=== PATIENT | female | born 1985 | race Two or more races ===

== ENCOUNTER 2021-01-30 12:27 | Emergency (ER) | payer OTHER ==
[~2021-01-30] VITALS: Ht 154.9 cm; Wt 81.6 kg
[2021-01-30 14:29] VITALS: BP 121/73
== END 2021-01-30 14:38 | disposition home or self-care (01) ==
LOC: ER 12:27
DX: G45.9 Transient cerebral ischemic attack, unspecified (principal)
CPT/HCPCS: 70450

== ENCOUNTER 2021-02-24 06:11 | Emergency (ER) | payer OTHER ==
[~2021-02-24] VITALS: Ht 154.9 cm; Wt 82.1 kg
[2021-02-24 07:25] LABS: Basophils # (auto) 0 10 ^3/uL (0-0.2); Basophils % (auto) 0.5 % (0.0-2.0); Eosinophils # (auto) 0.1 10 ^3/uL (0-0.8); Eosinophils % (auto) 1.2 % (0.0-7.0); Hematocrit 40.1 % (36.0-46.0); Hemoglobin 13.8 g/dL (12.2-16.2); Lymphocytes # (auto) 1.7 10 ^3/uL (0.4-5.4); Lymphocytes % (auto) 25.9 % (10.0-50.0); Mean Corpuscular Hemoglobin 30.1 pg (28.0-32.0); Mean Corpuscular Hgb Conc. 34.5 g/dL (32.0-36.0); Mean Corpuscular Volume 87.2 fL (80.0-100.0); Monocytes # (auto) 0.4 10 ^3/uL (0-1.3); Monocytes % (auto) 6.2 % (0.0-12.0); Neutrophils # (auto) 4.4 10 ^3/uL (1.6-8.6); Neutrophils % (auto) 66.2 % (37.0-80.0); Nucleated Red Blood Cells % 0.2 %; Platelet Count (auto) 220 10^3/uL (140-450); Red Cell Distribution Width 12.7 % (11.8-14.3); White Blood Cell 6.7 10^3/uL (4.4-10.8)
[2021-02-24] MEDS ORDERED: KETOROLAC TROMETH 30 MG/ML 1ML VIAL IV ONE (07:30)
[2021-02-24 07:38] LABS: Albumin 3.4 g/dL (3.4-5.0); Anion Gap 7 (5-15); Blood Urea Nitrogen 11 mg/dL (7-18); Calcium 8.3 mg/dL (8.5-10.1); Carbon Dioxide 23 mmol/L (21-32); Chloride 109 mmol/L (98-107); Glucose 95 mg/dL (74-106); INR 0.99 (0.9-1.15); Magnesium 2.3 mg/dL (1.6-2.6); Partial Thromboplastin Time 30.7 sec (23.0-31.2); Potassium 3.4 mmol/L (3.5-5.1); Sodium 139 mmol/L (136-145)
[2021-02-24 07:44] LABS: Alanine Aminotransferase < 6 U/L (13-56); Alkaline Phosphatase 79 U/L (45-117); Aspartate Aminotransferase 10 U/L (15-37); Bilirubin, Total 0.4 mg/dL (0.2-1.0); GFR African American 152 mL/min; GFR Non-African American 126 mL/min
[2021-02-24 08:29] LABS: Urine Bacteria NONE SEEN /hpf (None Seen); Urine Blood Negative /uL (Negative); Urine Mucus FEW (None Seen); Urine WBC <1 /hpf (0 - 5)
[2021-02-24 08:55] VITALS: BP 112/76
== END 2021-02-24 09:34 | disposition home or self-care (01) ==
LOC: ER 06:11
DX: R07.89 Other chest pain (principal); Z88.5 Allergy status to narcotic agent; Z88.8 Allergy status to other drugs, medicaments and biological substances
CPT/HCPCS: 36415; 71045; 80053; 81001; 81025; 83735; 83880; 84484; 85025; 85610; 85730; 93005; 96374; 99285; J1885

== ENCOUNTER 2021-02-24 21:26 | Emergency (ER) | payer OTHER ==
[~2021-02-24] VITALS: Ht 154.9 cm; Wt 82.1 kg
[2021-02-24 22:06] LABS: Basophils # (auto) 0.1 10 ^3/uL (0-0.2); Basophils % (auto) 0.7 % (0.0-2.0); Eosinophils # (auto) 0.1 10 ^3/uL (0-0.8); Eosinophils % (auto) 0.7 % (0.0-7.0); Hematocrit 42.3 % (36.0-46.0); Hemoglobin 14.6 g/dL (12.2-16.2); Lymphocytes # (auto) 2.5 10 ^3/uL (0.4-5.4); Lymphocytes % (auto) 24.3 % (10.0-50.0); Mean Corpuscular Hemoglobin 30.5 pg (28.0-32.0); Mean Corpuscular Hgb Conc. 34.5 g/dL (32.0-36.0); Mean Corpuscular Volume 88.3 fL (80.0-100.0); Monocytes # (auto) 0.7 10 ^3/uL (0-1.3); Monocytes % (auto) 6.6 % (0.0-12.0); Neutrophils # (auto) 6.9 10 ^3/uL (1.6-8.6); Neutrophils % (auto) 67.7 % (37.0-80.0); Platelet Count (auto) 242 10^3/uL (140-450); Red Blood Cells 4.78 10^6/uL (4.0-5.20); Red Cell Distribution Width 13.4 % (11.8-14.3); White Blood Cell 10.2 10^3/uL (4.4-10.8)
[2021-02-24 22:26] LABS: INR 1.03 (0.9-1.15); Partial Thromboplastin Time 32.8 sec (23.0-31.2)
[2021-02-24 22:29] LABS: Alanine Aminotransferase < 6 U/L (13-56); Anion Gap 7 (5-15); Aspartate Aminotransferase 16 U/L (15-37); Blood Urea Nitrogen 14 mg/dL (7-18); Carbon Dioxide 24 mmol/L (21-32); Chloride 108 mmol/L (98-107); Glucose 101 mg/dL (74-106); Potassium 3.9 mmol/L (3.5-5.1); Sodium 139 mmol/L (136-145)
[2021-02-24 22:34] LABS: Alkaline Phosphatase 87 U/L (45-117); BUN/Creatinine Ratio 17.9; Bilirubin, Total 0.3 mg/dL (0.2-1.0); GFR African American 108 mL/min; GFR Non-African American 89 mL/min; Total Protein 8.9 g/dL (6.4-8.2)
[2021-02-25] MEDS ORDERED: IBUPROFEN 800 MG TAB PO ONE (02:45)
[2021-02-25 04:15] VITALS: BP 202/88
== END 2021-02-25 04:33 | disposition home or self-care (01) ==
LOC: ER 21:26
DX: R07.89 Other chest pain (principal); N60.12 Diffuse cystic mastopathy of left breast; Z88.6 Allergy status to analgesic agent; Z88.5 Allergy status to narcotic agent; Z98.890 Other specified postprocedural states; Z98.51 Tubal ligation status
CPT/HCPCS: 36415; 80053; 84484; 85025; 85379; 85610; 85730; 93005

== ENCOUNTER 2021-05-18 09:30 | Emergency (ER) | payer OTHER ==
[~2021-05-18] VITALS: Ht 154.9 cm; Wt 82.6 kg
[2021-05-18 09:54] LABS: Basophils # (auto) 0 10 ^3/uL (0-0.2); Basophils % (auto) 0.6 % (0.0-2.0); Eosinophils # (auto) 0 10 ^3/uL (0-0.8); Eosinophils % (auto) 0.7 % (0.0-7.0); Hematocrit 39.6 % (36.0-46.0); Hemoglobin 13.7 g/dL (12.2-16.2); Lymphocytes # (auto) 1.5 10 ^3/uL (0.4-5.4); Lymphocytes % (auto) 24.1 % (10.0-50.0); Mean Corpuscular Hemoglobin 30.1 pg (28.0-32.0); Mean Corpuscular Hgb Conc. 34.6 g/dL (32.0-36.0); Monocytes # (auto) 0.3 10 ^3/uL (0-1.3); Monocytes % (auto) 4.5 % (0.0-12.0); Neutrophils # (auto) 4.2 10 ^3/uL (1.6-8.6); Neutrophils % (auto) 70.1 % (37.0-80.0); Nucleated Red Blood Cells % 0.1 %; Red Blood Cells 4.55 10^6/uL (4.0-5.20); Red Cell Distribution Width 13.1 % (11.8-14.3); White Blood Cell 6.1 10^3/uL (4.4-10.8)
[2021-05-18 10:14] LABS: Albumin 3.2 g/dL (3.4-5.0); Anion Gap 6 (5-15); Blood Urea Nitrogen 10 mg/dL (7-18); Calcium 8.3 mg/dL (8.5-10.1); Carbon Dioxide 23 mmol/L (21-32); Chloride 110 mmol/L (98-107); Glucose 113 mg/dL (74-106); Lipase 101 U/L (73-393); Potassium 3.6 mmol/L (3.5-5.1); Sodium 139 mmol/L (136-145)
[2021-05-18 10:19] LABS: Alanine Aminotransferase 7 U/L (13-56); Alkaline Phosphatase 77 U/L (45-117); Aspartate Aminotransferase 11 U/L (15-37); BUN/Creatinine Ratio 13.5; Bilirubin, Total 0.4 mg/dL (0.2-1.0); GFR African American 115 mL/min; GFR Non-African American 95 mL/min; Total Protein 7.9 g/dL (6.4-8.2)
[2021-05-18 11:02] VITALS: BP 113/64
[2021-05-18] MEDS ORDERED: IBUPROFEN 800 MG TAB PO ONE (11:30)
== END 2021-05-18 11:49 | disposition home or self-care (01) ==
LOC: ER 09:30
DX: S39.011A Strain of muscle, fascia and tendon of abdomen, initial encounter (principal); Z88.5 Allergy status to narcotic agent; Z88.8 Allergy status to other drugs, medicaments and biological substances; X50.1XXA Overexertion from prolonged static or awkward postures, initial encounter; Y93.89 Activity, other specified; Y92.89 Other specified places as the place of occurrence of the external cause; Y99.8 Other external cause status
CPT/HCPCS: 36415; 80053; 81025; 83690; 84484; 85025

== ENCOUNTER 2021-10-02 11:37 | Emergency (ER) | payer OTHER ==
[~2021-10-02] VITALS: Ht 154.9 cm; Wt 81.6 kg
[2021-10-02] MEDS ORDERED: AMOX-277 PO (16:58)
[2021-10-02] MEDS ORDERED: IBUP800T27 PO (16:58)
[2021-10-02] MEDS ORDERED: PRED20TA2 PO (16:59)
[2021-10-02] MEDS ORDERED: ALBU108A5 IN (16:59)
[2021-10-02 17:00] VITALS: BP 107/80
== END 2021-10-02 17:07 | disposition home or self-care (01) ==
LOC: ER 11:37
DX: U07.1 COVID-19 (principal); J06.9 Acute upper respiratory infection, unspecified; R51.9 Headache, unspecified; Z98.51 Tubal ligation status
CPT/HCPCS: 36415; 71046; 87426; 87804

== ENCOUNTER 2021-12-04 08:22 | Emergency (ER) | payer OTHER ==
[~2021-12-04] VITALS: Ht 154.9 cm; Wt 81.2 kg
[~2021-12-04 08:22] MED LIST: ALBU108A5 IN; AMOX-277 PO; IBUP800T27 PO; PRED20TA2 PO
[2021-12-04 08:59] LABS: Basophils # (auto) 0 10 ^3/uL (0-0.2); Basophils % (auto) 0.4 % (0.0-2.0); Eosinophils # (auto) 0.1 10 ^3/uL (0-0.8); Eosinophils % (auto) 0.8 % (0.0-7.0); Hematocrit 42.5 % (36.0-46.0); Hemoglobin 13.9 g/dL (12.2-16.2); Lymphocytes # (auto) 1.8 10 ^3/uL (0.4-5.4); Lymphocytes % (auto) 24.4 % (10.0-50.0); Mean Corpuscular Hemoglobin 28.9 pg (28.0-32.0); Mean Corpuscular Hgb Conc. 32.7 g/dL (32.0-36.0); Mean Corpuscular Volume 88.4 fL (80.0-100.0); Monocytes # (auto) 0.4 10 ^3/uL (0-1.3); Monocytes % (auto) 6.1 % (0.0-12.0); Neutrophils # (auto) 4.9 10 ^3/uL (1.6-8.6); Neutrophils % (auto) 68.3 % (37.0-80.0); Nucleated Red Blood Cells % 0.1 %; Red Blood Cells 4.81 10^6/uL (4.0-5.20); Red Cell Distribution Width 13.8 % (11.8-14.3); White Blood Cell 7.2 10^3/uL (4.4-10.8)
[2021-12-04 09:05] LABS: Urine Bacteria NONE SEEN /hpf (None Seen); Urine Blood Negative /uL (Negative); Urine Mucus FEW (None Seen); Urine Specific Gravity 1.021 (1.001-1.035); Urine WBC 22 /hpf (0 - 5)
[2021-12-04 09:13] LABS: Alanine Aminotransferase < 6 U/L (13-56); Albumin 3.4 g/dL (3.4-5.0); Anion Gap 5 (5-15); Aspartate Aminotransferase 9 U/L (15-37); BUN/Creatinine Ratio 15.2; Blood Urea Nitrogen 10 mg/dL (7-18); Calcium 8.6 mg/dL (8.5-10.1); Carbon Dioxide 25 mmol/L (21-32); Chloride 108 mmol/L (98-107); GFR African American 130 mL/min; GFR Non-African American 108 mL/min; Glucose 99 mg/dL (74-106); Potassium 3.8 mmol/L (3.5-5.1); Sodium 138 mmol/L (136-145)
[2021-12-04 09:16] LABS: Alkaline Phosphatase 64 U/L (45-117); Bilirubin, Total 0.6 mg/dL (0.2-1.0); Total Protein 7.6 g/dL (6.4-8.2)
[2021-12-04] MEDS ORDERED: NITR-87 PO (09:47)
[2021-12-04 10:57] VITALS: BP 109/65
== END 2021-12-04 10:59 | disposition home or self-care (01) ==
LOC: ER 08:22
DX: R10.13 Epigastric pain (principal); R11.2 Nausea with vomiting, unspecified; Z79.1 Long term (current) use of non-steroidal anti-inflammatories (NSAID); Z79.2 Long term (current) use of antibiotics; Z79.899 Other long term (current) drug therapy; Z88.5 Allergy status to narcotic agent; Z88.8 Allergy status to other drugs, medicaments and biological substances
CPT/HCPCS: 36415; 74176; 80053; 81001; 81025; 85025

== ENCOUNTER 2022-02-11 08:53 | Emergency (ER) | payer OTHER ==
[~2022-02-11] VITALS: Ht 154.9 cm; Wt 79.8 kg
[~2022-02-11 08:53] MED LIST changes: +NITR-87 PO
[2022-02-11] MEDS ORDERED: IBUP800T27 PO (11:05)
[2022-02-11] MEDS ORDERED: CYCL-837 PO (11:05)
[2022-02-11 11:08] VITALS: BP 121/83
== END 2022-02-11 11:44 | disposition home or self-care (01) ==
LOC: ER 08:53
DX: S46.911A Strain of unspecified muscle, fascia and tendon at shoulder and upper arm level, right arm, initial encounter (principal); Z98.51 Tubal ligation status; Z88.6 Allergy status to analgesic agent; X58.XXXA Exposure to other specified factors, initial encounter; Y93.89 Activity, other specified; Y92.89 Other specified places as the place of occurrence of the external cause; Y99.8 Other external cause status

== ENCOUNTER 2022-08-31 12:40 | Emergency (ER) | payer OTHER ==
[~2022-08-31] VITALS: Ht 160 cm; Wt 82.2 kg
[~2022-08-31 12:40] MED LIST changes: +CYCL-837 PO
[2022-08-31 13:45] LABS: Basophils # (auto) 0 10 ^3/uL (0-0.2); Basophils % (auto) 0.5 % (0.0-2.0); Eosinophils # (auto) 0.1 10 ^3/uL (0-0.8); Eosinophils % (auto) 0.9 % (0.0-7.0); Hemoglobin 13.4 g/dL (12.2-16.2); Lymphocytes # (auto) 1.4 10 ^3/uL (0.4-5.4); Lymphocytes % (auto) 24.3 % (10.0-50.0); Mean Corpuscular Hemoglobin 28.8 pg (28.0-32.0); Mean Corpuscular Hgb Conc. 32.8 g/dL (32.0-36.0); Monocytes # (auto) 0.3 10 ^3/uL (0-1.3); Monocytes % (auto) 5.6 % (0.0-12.0); Neutrophils % (auto) 68.7 % (37.0-80.0); Nucleated Red Blood Cells % 0.1 %; Red Blood Cells 4.66 10^6/uL (4.0-5.20); Red Cell Distribution Width 13.5 % (11.8-14.3); White Blood Cell 5.9 10^3/uL (4.4-10.8)
[2022-08-31 13:46] LABS: Urine Bacteria NONE SEEN /hpf (None Seen); Urine Blood TRACE /uL (Negative); Urine Specific Gravity 1.012 (1.001-1.035); Urine WBC 1 /hpf (0 - 5)
[2022-08-31 14:13] LABS: Albumin 3.3 g/dL (3.4-5.0); Calcium 8.4 mg/dL (8.5-10.1); Potassium 3.9 mmol/L (3.5-5.1)
[2022-08-31 14:19] LABS: BUN/Creatinine Ratio 12.9; Bilirubin, Total 0.4 mg/dL (0.2-1.0); Total Protein 7.3 g/dL (6.4-8.2)
[2022-08-31 15:36] VITALS: BP 137/85
[2022-08-31] MEDS ORDERED: IBUPROFEN 600 MG TAB PO ONE (16:30)
[2022-08-31] MEDS ORDERED: CIPR-173 PO (16:39)
[2022-08-31] MEDS ORDERED: OME40GT PO (16:39)
== END 2022-08-31 17:02 | disposition home or self-care (01) ==
LOC: ER 12:40
DX: K76.0 Fatty (change of) liver, not elsewhere classified (principal); N39.0 Urinary tract infection, site not specified; Z79.1 Long term (current) use of non-steroidal anti-inflammatories (NSAID); Z79.899 Other long term (current) drug therapy; Z88.5 Allergy status to narcotic agent; Z88.8 Allergy status to other drugs, medicaments and biological substances
CPT/HCPCS: 36415; 76705; 80053; 81001; 81025; 83690; 85025

== ENCOUNTER 2022-10-01 09:44 | Emergency (ER) | payer OTHER ==
[~2022-10-01] VITALS: Ht 154.9 cm; Wt 83.0 kg
[~2022-10-01 09:44] MED LIST changes: +CIPR-173 PO; +OME40GT PO
[2022-10-01 10:28] VITALS: BP 134/90
[2022-10-01] MEDS ORDERED: LORA-483 GT ×2 (11:06→11:34)
[2022-10-01] MEDS ORDERED: ACET-1158 PO ×2 (11:06→11:34)
== END 2022-10-01 11:07 | disposition home or self-care (01) ==
LOC: ER 09:44
DX: J02.8 Acute pharyngitis due to other specified organisms (principal); Z20.822 Contact with and (suspected) exposure to COVID-19; Z88.6 Allergy status to analgesic agent; Z98.51 Tubal ligation status
CPT/HCPCS: 36415; 87426; 87804

== ENCOUNTER 2022-12-17 08:11 | Emergency (ER) | payer MEDICAID, OTHER ==
[~2022-12-17] VITALS: Ht 154.9 cm; Wt 81.8 kg
[~2022-12-17 08:11] MED LIST changes: +ACET-1158 PO; +LORA-483 GT
[2022-12-17 09:19] LABS: Basophils # (auto) 0.1 10 ^3/uL (0-0.2); Basophils % (auto) 0.5 % (0.0-2.0); Eosinophils # (auto) 0 10 ^3/uL (0-0.8); Eosinophils % (auto) 0.4 % (0.0-7.0); Hematocrit 41.2 % (36.0-46.0); Lymphocytes # (auto) 1.4 10 ^3/uL (0.4-5.4); Lymphocytes % (auto) 12.3 % (10.0-50.0); Mean Corpuscular Hemoglobin 29.5 pg (28.0-32.0); Mean Corpuscular Volume 86.6 fL (80.0-100.0); Monocytes # (auto) 0.6 10 ^3/uL (0-1.3); Monocytes % (auto) 5.5 % (0.0-12.0); Neutrophils # (auto) 9.1 10 ^3/uL (1.6-8.6); Neutrophils % (auto) 81.3 % (37.0-80.0); Red Blood Cells 4.76 10^6/uL (4.0-5.20); Red Cell Distribution Width 13.5 % (11.8-14.3); White Blood Cell 11.2 10^3/uL (4.4-10.8)
[2022-12-17 09:29] LABS: Urine Bacteria NONE SEEN /hpf (None Seen); Urine Blood Negative /uL (Negative); Urine Hyaline Cast FEW /lpf (0 - 2); Urine Mucus FEW (None Seen); Urine Specific Gravity 1.022 (1.001-1.035); Urine WBC 1 /hpf (0 - 5)
[2022-12-17 09:53] LABS: Alanine Aminotransferase < 6 U/L (13-56); Albumin 3.5 g/dL (3.4-5.0); Alkaline Phosphatase 63 U/L (45-117); Anion Gap 7 (5-15); Aspartate Aminotransferase 12 U/L (15-37); BUN/Creatinine Ratio 20.3; Bilirubin, Total 0.5 mg/dL (0.2-1.0); Blood Urea Nitrogen 13 mg/dL (7-18); Calcium 8.1 mg/dL (8.5-10.1); Carbon Dioxide 20 mmol/L (21-32); Chloride 109 mmol/L (98-107); GFR African American 134 mL/min; GFR Non-African American 111 mL/min; Glucose 106 mg/dL (74-106); Sodium 136 mmol/L (136-145)
[2022-12-17] MEDS ORDERED: ONDANSETRON ODT 4 MG TAB PO ONE (10:45)
[2022-12-17] MEDS ORDERED: MAALOX PLUS or MAALOX 30 ML PO ONE (10:45)
[2022-12-17] MEDS ORDERED: LIDOCAINE VISCOUS 2% 15ML UD PO ONE (10:45)
[2022-12-17] MEDS ORDERED: FAMOTIDINE 20 MG TAB PO ONE (10:45)
[2022-12-17] MEDS ORDERED: ONDA-144 PO (13:14)
[2022-12-17 14:23] VITALS: BP 117/71
== END 2022-12-17 14:24 | disposition home or self-care (01) ==
LOC: ER 08:11
DX: R11.2 Nausea with vomiting, unspecified (principal); R19.7 Diarrhea, unspecified; R10.33 Periumbilical pain; Z79.1 Long term (current) use of non-steroidal anti-inflammatories (NSAID); Z79.2 Long term (current) use of antibiotics; Z79.899 Other long term (current) drug therapy; Z88.5 Allergy status to narcotic agent; Z88.8 Allergy status to other drugs, medicaments and biological substances
CPT/HCPCS: 36415; 80053; 81001; 81025; 85025; 99284; Q0162

== ENCOUNTER 2023-03-20 08:57 | Emergency (ER) | payer MEDICAID ==
[~2023-03-20] VITALS: Ht 154.9 cm; Wt 80.6 kg
[~2023-03-20 08:57] MED LIST changes: -ACET-1158 PO; +ACET500T58 PO; -AMOX-277 PO; +AMOX875T4 PO; +IBUP-1456 PO; -IBUP800T27 PO; +ONDA-144 PO
[2023-03-20 09:33] VITALS: BP 127/78
[2023-03-20] MEDS ORDERED: methylPREDNISolone SOD SUCC 125 MG/2 ML VL IM ONE (09:45)
[2023-03-20] MEDS ORDERED: cefTRIAXone SOD 1,000 MG VL IM ONE (09:45)
[2023-03-20] MEDS ORDERED: IBUP-1454 PO (10:07)
[2023-03-20] MEDS ORDERED: AUG875T PO (10:07)
== END 2023-03-20 10:14 | disposition home or self-care (01) ==
LOC: ER 08:57
DX: J03.90 Acute tonsillitis, unspecified (principal); H66.91 Otitis media, unspecified, right ear; Z98.51 Tubal ligation status; Z88.1 Allergy status to other antibiotic agents; Z88.6 Allergy status to analgesic agent
CPT/HCPCS: 96372; 99284; J0696; J2930

== ENCOUNTER 2023-11-28 06:56 | Emergency (ER) | payer MEDICAID ==
[~2023-11-28] VITALS: Ht 160 cm; Wt 83.6 kg
[~2023-11-28 06:56] MED LIST changes: +AUG875T PO; +FLUT1SPR5; +IBUP-1454 PO
[2023-11-28 07:58] LABS: Urine Bacteria NONE SEEN /hpf (None Seen); Urine Blood Negative /uL (Negative); Urine Clarity Clear (Clear); Urine Color Yellow (Yellow); Urine Protein, UAD Negative (Negative); Urine Specific Gravity 1.023 (1.001-1.035); Urine Urobilinogen Normal (Negative); Urine WBC 6 /hpf (0 - 5)
[2023-11-28 08:21] LABS: Basophils # (auto) 0 10 ^3/uL (0-0.2); Basophils % (auto) 0.2 % (0.0-2.0); Eosinophils # (auto) 0.1 10 ^3/uL (0-0.8); Eosinophils % (auto) 0.5 % (0.0-7.0); Hematocrit 39.5 % (36.0-46.0); Hemoglobin 12.9 g/dL (12.2-16.2); Lymphocytes # (auto) 1.5 10 ^3/uL (0.4-5.4); Mean Corpuscular Hemoglobin 28.6 pg (28.0-32.0); Mean Corpuscular Hgb Conc. 32.6 g/dL (32.0-36.0); Mean Corpuscular Volume 87.9 fL (80.0-100.0); Monocytes # (auto) 0.8 10 ^3/uL (0-1.3); Monocytes % (auto) 7.4 % (0.0-12.0); Neutrophils % (auto) 78.9 % (37.0-80.0); Red Cell Distribution Width 13.6 % (11.8-14.3); White Blood Cell 11.4 10^3/uL (4.4-10.8)
[2023-11-28 08:42] LABS: Albumin 3.9 g/dL (3.2-4.8); Alkaline Phosphatase 60 U/L (46-116); Anion Gap 6 (5-15); Aspartate Aminotransferase < 8 U/L (13-40); BUN/Creatinine Ratio 15.4 (10.0-20.0); Blood Urea Nitrogen 10 mg/dL (9-23); Calcium 8.3 mg/dL (8.7-10.4); Carbon Dioxide 25 mmol/L (20-30); Chloride 106 mmol/L (98-107); Glucose 103 mg/dL (74-106); Lipase 47 U/L (12-53); Sodium 137 mmol/L (136-145)
[2023-11-28 08:43] LABS: Bilirubin, Total 0.5 mg/dL (0.2-1.0); Total Protein 6.9 g/dL (5.7-8.2)
[2023-11-28 08:45] LABS: Alanine Aminotransferase < 9 U/L (7-40)
[2023-11-28] MEDS ORDERED: CIPR-173 PO (09:01)
[2023-11-28] MEDS ORDERED: TRAM50TA2 PO (09:01)
[2023-11-28] MEDS: SODIUM CHLORIDE 0.9% 1,000 ML IVB ONE (09:34)
[2023-11-28] MEDS: IBUPROFEN 600 MG TAB PO ONE (09:44)
[2023-11-28] MEDS: MORPHINE SULFATE 4 MG/ML SYR/VIAL IV ONE (09:44)
[2023-11-28] MEDS: ONDANSETRON HCL 4 MG/2 ML VIAL IV ONE (09:51)
[2023-11-28 10:45] VITALS: BP 125/80; PULSE 69; RESP 17; TEMP 97.9; O2SAT 97
== END 2023-11-28 11:04 | disposition home or self-care (01) ==
LOC: ER 06:56
DX: N39.0 Urinary tract infection, site not specified (principal); D72.829 Elevated white blood cell count, unspecified; F17.210 Nicotine dependence, cigarettes, uncomplicated; Z32.02 Encounter for pregnancy test, result negative; Z98.51 Tubal ligation status; Z88.6 Allergy status to analgesic agent
CPT/HCPCS: 36415; 74176; 80053; 81001; 81025; 83690; 85025; 96361; 96374; 99285; J2405; J7030

== ENCOUNTER 2023-12-21 09:26 | Emergency (ER) | payer MEDICAID ==
[~2023-12-21] VITALS: Ht 154.9 cm; Wt 82.3 kg
[~2023-12-21 09:26] MED LIST changes: +TRAM50TA2 PO
[2023-12-21 10:07] VITALS: BP 122/82; PULSE 79; RESP 16; TEMP 97.1; O2SAT 98
[2023-12-21] MEDS ORDERED: BENZLOZ2 MT (11:09)
[2023-12-21] MEDS ORDERED: OFL50TS OT (11:09)
[2023-12-21] MEDS ORDERED: FAMO20TA10 PO (11:09)
[2023-12-21] MEDS ORDERED: IBUP1TAB5 PO (11:09)
[2023-12-21] MEDS ORDERED: PRED20TA2 PO (11:09)
[2023-12-21] MEDS ORDERED: CETI10CA PO (11:09)
[2023-12-21] MEDS ORDERED: AUG875T PO (11:09)
[2023-12-21] MEDS: cefTRIAXone SOD 1,000 MG VL IM ONE (11:18)
[2023-12-21] MEDS: DexAMETHasone SOD PHOS 10MG/1ML VIAL INJ IM ONE (11:18)
== END 2023-12-21 10:59 | disposition home or self-care (01) ==
LOC: ER 09:26
DX: H66.91 Otitis media, unspecified, right ear (principal); J03.90 Acute tonsillitis, unspecified; K21.9 Gastro-esophageal reflux disease without esophagitis; F17.210 Nicotine dependence, cigarettes, uncomplicated; Z79.1 Long term (current) use of non-steroidal anti-inflammatories (NSAID); Z79.2 Long term (current) use of antibiotics; Z79.899 Other long term (current) drug therapy; Z88.5 Allergy status to narcotic agent; Z88.8 Allergy status to other drugs, medicaments and biological substances
CPT/HCPCS: 96372; 99284; J0696; J1100

== ENCOUNTER 2024-01-12 07:55 | Emergency (ER) | payer MEDICAID ==
[~2024-01-12] VITALS: Ht 154.9 cm; Wt 83.6 kg
[~2024-01-12 07:55] MED LIST changes: +BENZLOZ2 MT; +CETI10CA PO; +FAMO20TA10 PO; +IBUP1TAB5 PO; +OFL50TS OT
[2024-01-12 08:37] VITALS: BP 118/67; PULSE 67; RESP 16; TEMP 98.1; O2SAT 97
[2024-01-12] MEDS ORDERED: LIDO5CRE14 EX (09:29)
[2024-01-12] MEDS ORDERED: IBUP1TAB5 PO (09:29)
[2024-01-12] MEDS ORDERED: DICL1GEL59 EX (09:29)
== END 2024-01-12 09:41 | disposition home or self-care (01) ==
LOC: ER 07:55
DX: M54.2 Cervicalgia (principal); K21.9 Gastro-esophageal reflux disease without esophagitis; F17.210 Nicotine dependence, cigarettes, uncomplicated; Z98.51 Tubal ligation status; Z88.6 Allergy status to analgesic agent

== ENCOUNTER 2024-01-28 09:39 | Emergency (ER) | payer MEDICAID ==
[~2024-01-28] VITALS: Ht 154.9 cm; Wt 85.6 kg
[~2024-01-28 09:39] MED LIST changes: +DICL1GEL59 EX; +LIDO5CRE14 EX
[2024-01-28 10:43] VITALS: BP 111/86; PULSE 74; RESP 17; TEMP 98; O2SAT 99
[2024-01-28 11:29] LABS: Urine Bacteria None Seen /hpf (None Seen)
[2024-01-28 11:59] LABS: Urine Blood Negative /uL (Negative); Urine Clarity Clear (Clear); Urine Color Light-Yellow (Yellow); Urine Protein, UAD Negative (Negative); Urine Specific Gravity 1.015 (1.001-1.035); Urine Urobilinogen Normal (Negative); Urine WBC 9 /hpf (0 - 5); Urine pH 5.5 (5.0-9.0)
[2024-01-28] MEDS ORDERED: CEPH500C PO (12:10)
== END 2024-01-28 12:17 | disposition home or self-care (01) ==
LOC: ER 09:39
DX: R30.0 Dysuria (principal); F17.210 Nicotine dependence, cigarettes, uncomplicated; K21.9 Gastro-esophageal reflux disease without esophagitis; Z98.51 Tubal ligation status; Z32.02 Encounter for pregnancy test, result negative; Z88.6 Allergy status to analgesic agent
CPT/HCPCS: 81001; 81025

== ENCOUNTER 2024-02-02 08:25 | Emergency (ER) | payer MEDICAID ==
[~2024-02-02] VITALS: Ht 154.9 cm; Wt 86.0 kg
[~2024-02-02 08:25] MED LIST changes: +CEPH500C PO
[2024-02-02 09:03] VITALS: BP 120/73; PULSE 70; RESP 18; TEMP 98.2; O2SAT 97
[2024-02-02] MEDS ORDERED: PROM1SOL4 PO (09:12)
[2024-02-02] MEDS ORDERED: AUG875T PO (09:12)
[2024-02-02] MEDS ORDERED: IBUP-1454 PO (09:12)
[2024-02-02] MEDS ORDERED: METH4PAK PO (09:12)
[2024-02-02] MEDS ORDERED: BENZ100C97 PO (09:12)
== END 2024-02-02 10:31 | disposition home or self-care (01) ==
LOC: ER 08:25
DX: B34.9 Viral infection, unspecified (principal); J06.9 Acute upper respiratory infection, unspecified; F17.210 Nicotine dependence, cigarettes, uncomplicated; K21.9 Gastro-esophageal reflux disease without esophagitis; Z98.51 Tubal ligation status

== ENCOUNTER 2024-03-31 09:12 | Emergency (ER) | payer MEDICAID ==
[~2024-03-31] VITALS: Ht 154.9 cm; Wt 83.7 kg
[~2024-03-31 09:12] MED LIST changes: +BENZ100C97 PO; +METH4PAK PO; +PROM1SOL4 PO
[2024-03-31 11:04] LABS: Urine Bacteria None Seen /hpf (None Seen)
[2024-03-31 11:20] VITALS: BP 106/73; PULSE 67; RESP 16; TEMP 98.2; O2SAT 98
[2024-03-31 11:25] LABS: Urine Blood TRACE /uL (Negative); Urine Clarity Turbid (Clear); Urine Color Light-Yellow (Yellow); Urine Mucus FEW (None Seen); Urine Protein, UAD Negative (Negative); Urine Specific Gravity 1.021 (1.001-1.035); Urine Urobilinogen Normal (Negative); Urine WBC 2 /hpf (0 - 5)
[2024-03-31] MEDS ORDERED: LOPE2TAB99 PO (11:31)
[2024-03-31] MEDS ORDERED: NITR-87 PO (11:31)
== END 2024-03-31 11:38 | disposition home or self-care (01) ==
LOC: ER 09:21
DX: R35.0 Frequency of micturition (principal); R19.7 Diarrhea, unspecified; F17.210 Nicotine dependence, cigarettes, uncomplicated; K21.9 Gastro-esophageal reflux disease without esophagitis; Z98.51 Tubal ligation status; Z88.6 Allergy status to analgesic agent
CPT/HCPCS: 81001

== ENCOUNTER 2024-04-27 09:43 | Emergency (ER) | payer MEDICAID ==
[~2024-04-27] VITALS: Ht 154.9 cm; Wt 81.7 kg
[~2024-04-27 09:43] MED LIST changes: +LOPE2TAB99 PO
[2024-04-27 10:13] LABS: Urine Bacteria None Seen /hpf (None Seen); Urine WBC None Seen /hpf (0 - 5)
[2024-04-27 10:28] LABS: Urine Blood Negative /uL (Negative); Urine Clarity Clear (Clear); Urine Color Light-Yellow (Yellow); Urine Mucus FEW (None Seen); Urine Protein, UAD Negative (Negative); Urine Specific Gravity 1.018 (1.001-1.035); Urine Urobilinogen Normal (Negative)
[2024-04-27 11:02] VITALS: BP 110/85; PULSE 63; RESP 17; TEMP 98.2; O2SAT 99
[2024-04-27] MEDS ORDERED: FLUC150T38 PO (11:26)
[2024-04-27] MEDS ORDERED: NITR-87 PO (11:26)
== END 2024-04-27 11:37 | disposition home or self-care (01) ==
LOC: ER 09:43
DX: N39.0 Urinary tract infection, site not specified (principal); K21.9 Gastro-esophageal reflux disease without esophagitis; F17.210 Nicotine dependence, cigarettes, uncomplicated; Z88.5 Allergy status to narcotic agent; Z88.6 Allergy status to analgesic agent; Z98.51 Tubal ligation status; Z79.899 Other long term (current) drug therapy
CPT/HCPCS: 81001; 81025

== ENCOUNTER 2024-08-23 08:37 | Emergency (ER) | payer MEDICAID ==
[~2024-08-23] VITALS: Ht 154.9 cm; Wt 86.2 kg
[~2024-08-23 08:37] MED LIST changes: +FLUC150T38 PO
[2024-08-23 10:48] VITALS: BP 115/71; PULSE 78; RESP 18; TEMP 98.3; O2SAT 98
[2024-08-23] MEDS ORDERED: LIDO2SOL26 MT (10:52)
[2024-08-23] MEDS ORDERED: AZIT-185 PO (10:52)
[2024-08-23] MEDS ORDERED: CIPR1SUS8 OT (10:52)
--- NOTE | 2024-08-23 10:52 | ED.PDOC ---
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 Family History Family History: Reviewed,noncontributory to illness, Family hx of DM, Family hx of Cancer Social History Smoker: Cigarettes Alcohol: Occasionally Drugs: Denies Drug Use Lives In: Home All Other Systems: Reviewed and Negative (Per HPI) Physical Exam General Appearance: No Apparent Distress, Normal HEENT: Normal ENT Inspection, Pharynx Normal, TMs Normal Neck: Full Range of Motion, Non-Tender, Normal, Normal Inspection Respiratory: Chest Non-Tender, Lungs Clear, No Accessory Muscle Use, No Respiratory Distress, Normal Breath Sounds Cardiovascular: No Edema, No JVD, No Murmur, No Gallop, Normal Peripheral Pulses, Regular Rate/Rhythm Breast Exam: Deferred Gastrointestinal: No Organomegaly, Non Tender, No Pulsatile Mass, Normal Bowel Sounds, Soft Genitalia: Deferred Pelvic: Deferred Rectal: Deferred Extremities: No calf tenderness, Normal capillary refill, Normal inspection, Normal range of motion, Non-tender, No pedal edema Musculoskeletal : Apperance: Normal Neurologic: Alert, machine room operator II-XII nml as Tested, No Motor Deficits, Normal Affect, Normal Mood, No Sensory Deficits Cerebellar Function: Normal Reflexes: Normal Skin: Dry, Normal Color, Warm Lymphatic: No Adenopathy Was a procedure done? Was a procedure done?: No Differential Dx Differential Diagnosis: Pharyngitis, URI X-Ray, Labs, Meds, VS Vital Signs Date Time Temp Pulse Resp B/P (MAP) Pulse Ox O2 Delivery O2 Flow Rate FiO2 08/23/24 10:48 98.3 78 18 115/71 (86) 98 98.3 08/23/24 10:48 78 08/23/24 09:02 98.3 78 18 115/71 (86) 98 X-Ray, Labs, Meds, VS Comment No red flags after review of systems and physical examination. Based on shared decision-making patient agreed to empiric treatment. On reevaluation, patient had symptomatic improvement. Patient is stable for discharge at this time. External notes reviewed. Test results and diagnostic imaging interpreted. All diagnostic findings, discharge care, education and instructions provided Follow-up with PCP in 2 to 3 days Patient verbalized understanding and agreed to treatment plan Vital signs stable, afebrile, no acute distress noted Patient ambulatory with strong steady gait Advised to return precautions for any new or worsening symptoms, return to ER immediately for re-evaluation Patient is aware that the purpose of this visit was for an acute medical emergency requiring emergent stabilization. Chronic conditions, including malignancies have not been ruled out. Patient is instructed to follow up with PCP as directed and discharge instructions for continued care and workup. If unable to arrange follow-up, patient is to return to the emergency department for reassessment. Patient (parent or legal guardian if applicable) was given verbal and written discharge instructions and acknowledges understanding. Time of 1ST Reevaluation: 10:49 Reevaluation 1ST: Improved Patient Education/Counseling: Diagnosis, Treatment Family Education/Counseling: Diagnosis, Treatment Departure 1 Departure Time of Disposition: 10:49 Impression: Primary Impression: Otalgia Qualified Codes: H92.03 - Otalgia, bilateral Additional Impressions: Pharyngitis Qualified Codes: J02.9 - Acute pharyngitis, unspecified Viral syndrome Disposition: 01 HOME / SELF CARE / HOMELESS Condition: Stable e-Prescriptions Lidocaine HCl (Mouth-Throat) (Lidocaine HCl Viscous) 2 % Gaye 15 ML MT TID for 2 Days, #200 ML 0 Refills Prov: KENDY SMITH NP 08/23/24 Ibuprofen (Ibuprofen) 600 Mg Tab 1 TAB PO TID for 10 Days, #30 TAB 0 Refills Prov: KENDY SMITH NP 08/23/24 Azithromycin (ZITHROMAX TABLET) 250 Mg Tb 250 MG PO DAILY for 5 Days, #6 TAB 0 Refills Prov: KENDY SMITH NP 08/23/24 Ciprofloxacin-Dexamethasone (Ciprofloxacin/Dexamethaso 0.3-0.1 %) 1 Radha Radha 4 DROP OT BID for 7 Days, #5 ML 0 Refills Prov: KENDY SMITH NP 08/23/24 Discharged With: Self Critical Care Note Critical Care Time?: No Stability Stability form required: No Heart Score Heart Score: Heart Score Response (Comments) Value History N/A 0 EKG N/A 0 Age N/A 0 Risk Factors N/A 0 Troponin N/A 0 Total 0 KENDY SMITH NP Aug 23, 2024 10:52
== END 2024-08-23 11:02 | disposition home or self-care (01) ==
LOC: ER 08:37
DX: B34.9 Viral infection, unspecified (principal); H92.03 Otalgia, bilateral; J02.9 Acute pharyngitis, unspecified; R51.9 Headache, unspecified; F17.210 Nicotine dependence, cigarettes, uncomplicated; K21.9 Gastro-esophageal reflux disease without esophagitis; Z87.59 Personal history of other complications of pregnancy, childbirth and the puerperium; Z98.51 Tubal ligation status

== ENCOUNTER 2024-09-28 22:53 | Emergency (ER) | payer MEDICAID ==
[~2024-09-28] VITALS: Ht 152.4 cm; Wt 84.8 kg
[~2024-09-28 22:53] MED LIST changes: +AZIT-185 PO; +CIPR1SUS8 OT; +LIDO2SOL26 MT
--- NOTE | 2024-09-29 00:08 | ED.PDOC ---
History of Present Illness HPI Comments 39-YEAR-OLD FEMALE PRESENTS TO ER WITH COMPLAINTS OF FLU-LIKE SYMPTOMS X1 DAY. PATIENT REPORTS SHE HAS BEEN EXPERIENCING DRY COUGH, FRONTAL HEADACHE, DIARRHEA AND BILATERAL EARACHE PAIN X1 DAY. STATES SHE HAS BEEN AROUND HER SON WHO HAS ALSO BEEN EXPERIENCING SIMILAR SYMPTOMS. SHE RATES HER CURRENT PAIN A 5/10. DENIES USE OF MEDICATIONS FOR CURRENT SYMPTOMS. PATIENT PRESENTS TO ER AMBULATORY ON ARRIVAL, WITH STEADY GAIT, IN NO DISTRESS. 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 Family History Family History: Unknown Social History Smoker: Non-Smoker Alcohol: Occasionally Drugs: Denies Drug Use Lives In: Home Constitutional: No Symptoms Reported EENTM: See HPI Respiratory: See HPI Cardiovascular: No Symptoms Reported Gastrointestinal: See HPI Genitourinary: No Symptoms Reported Neurological: See HPI Musculoskeletal: No Symptoms Reported Integumentary: No Symptoms Reported Allergic/Immunocompromised: others (DENIES) Hematologic/Lymphatic: No Symptoms Reported Endocrine: No Symptoms Reported Psychiatric: No symptoms Reported Physical Exam General Appearance: No Apparent Distress, Obese HEENT: PERRL/EOMI, Pharynx Normal, Other (MILD ERYTHEMA/BULGING NOTED TO RIGHT TM. REMAINDER BILATERAL EAR EXAM- UNREMARKABLE) Neck: Full Range of Motion, Non-Tender, Normal Respiratory: Chest Non-Tender, Lungs Clear, No Accessory Muscle Use, No Respiratory Distress, Normal Breath Sounds Cardiovascular: No Murmur, No Gallop, Regular Rate/Rhythm Breast Exam: Deferred Gastrointestinal: No Organomegaly, Non Tender, No Pulsatile Mass, Normal Bowel Sounds, Soft Genitalia: Deferred Pelvic: Deferred Rectal: Deferred Extremities: Normal capillary refill, Normal range of motion Neurologic: Alert, engraver pantograph II-XII nml as Tested, No Motor Deficits, Normal Affect, Normal Mood, No Sensory Deficits Cerebellar Function: Normal Reflexes: Normal Skin: Dry, Normal Color, Warm Peripheral Pulses: 2+ Radial (R), 2+ Radial (L), 2+ Brachial (R), 2+ Brachial (L) Lymphatic: No Adenopathy Was a procedure done? Was a procedure done?: No Sedation Sedation?: No Fever Differential Dx Differential Diagnosis: Influenza, Pneumonia, Sepsis, Pharyngitis X-Ray, Labs, Meds, VS Vital Signs Date Time Temp Pulse Resp B/P (MAP) Pulse Ox O2 Delivery O2 Flow Rate FiO2 09/28/24 23:10 97.9 79 18 113/71 (85) 98 Lab Test 09/28/24 23:36 Range/Units Influenza Type A Antigen Negative Negative Influenza Type B Antigen Negative Negative ROCEPHIN 1 G IM ORDERED SOLU-MEDROL 125 MG IM ORDERED INFLUENZA A AND B REVIEWED-NEGATIVE ADVISED TO DRINK PLENTY OF FLUIDS PATIENT IN NO DISTRESS DURING ER VISIT/PRIOR TO DISCHARGE ADVISED TO FOLLOW UP WITH PCP IN 1-2 DAYS PATIENT VERBALIZED UNDERSTANDING AND AGREEABLE WITH CURRENT PLAN OF CARE ADVISED TO RETURN TO ER IMMEDIATELY IF SYMPTOMS WORSEN Time of 1ST Reevaluation: 23:40 Reevaluation 1ST: N/A Patient Education/Counseling: Diagnosis, Treatment, Prognosis, Need For Follow Up Family Education/Counseling: Diagnosis, Treatment, Prognosis, Need For Follow Up Departure 1 Departure Time of Disposition: 00:02 Impression: Primary Impression: Otitis media of right ear Qualified Codes: H66.91 - Otitis media, unspecified, right ear Additional Impressions: Viral URI Viral gastroenteritis Disposition: 01 HOME / SELF CARE / HOMELESS Condition: Stable e-Prescriptions Amoxicillin & Pot Clavulanate (Amoxicillin/Potassium Cla) 875 Mg Tab 1 TAB PO BID for 7 Days, #14 TAB 0 Refills Prov: BINDU PLEITEZ 09/29/24 Discharged With: Self Critical Care Note Critical Care Time?: No Stability Stability form required: No Heart Score Heart Score: Heart Score Response (Comments) Value History N/A 0 EKG N/A 0 Age N/A 0 Risk Factors N/A 0 Troponin N/A 0 Total 0 BINDU PLEITEZ Sep 29, 2024 00:08
[2024-09-29 00:16] LABS: Rapid Influenza A Negative (Negative); Rapid Influenza B Negative (Negative)
[2024-09-29] MEDS: cefTRIAXone SOD 1,000 MG VL IM ONE (01:15)
[2024-09-29] MEDS: methylPREDNISolone SOD SUCC 125 MG/2 ML VL IM ONE (01:16)
[2024-09-29 02:09] VITALS: BP 136/91; PULSE 73; RESP 12; TEMP 98.4; O2SAT 100
== END 2024-09-29 02:13 | disposition home or self-care (01) ==
LOC: ER 22:53
DX: H66.91 Otitis media, unspecified, right ear (principal); A08.4 Viral intestinal infection, unspecified; J06.9 Acute upper respiratory infection, unspecified; K21.9 Gastro-esophageal reflux disease without esophagitis; B97.89 Other viral agents as the cause of diseases classified elsewhere; Z87.59 Personal history of other complications of pregnancy, childbirth and the puerperium; Z98.51 Tubal ligation status
CPT/HCPCS: 87804; 96372; 99284; J0696; J2919; 81001

== ENCOUNTER 2025-01-11 08:14 | Emergency (ER) | payer MEDICAID ==
[~2025-01-11] VITALS: Ht 154.9 cm; Wt 80.0 kg
[2025-01-11 08:52] LABS: Urine Bacteria None Seen /hpf (None Seen)
[2025-01-11 09:04] LABS: Urine Blood Negative /uL (Negative); Urine Clarity Clear (Clear); Urine Color Light-Yellow (Yellow); Urine Mucus FEW (None Seen); Urine Protein, UAD Negative (Negative); Urine Specific Gravity 1.021 (1.001-1.035); Urine Squamous Epithelial Cell FEW /hpf (<5); Urine Urobilinogen Normal (Negative); Urine WBC < 1 /HPF (0-5)
[2025-01-11 10:15] VITALS: PULSE 69; RESP 18; O2SAT 99
--- NOTE | 2025-01-11 10:42 | ED.PDOC ---
GI ASSESSMENT HPI Comments 39 year old female presents to the ED with a chief complaint of abdominal pain onset 1 month. Patient states she has been experiencing abdominal pain with nausea, vomiting for the past month. She was prescribed Ozempic by PCP, 1st month had no problem, dose was increased 2nd month and shortly after patient began experiencing abdominal pain that radiates to back with N/V, was taken off Ozempic, last dose was 1 month ago. For the past 2 days she noticed symptoms has worsen and also began experiencing sore throat. She was sent for an ultrasound by PCP 2 weeks ago, was negative. PMHx GERD, anxiety. Denies chest pain, shortness of breath, dizziness, weakness, diarrhea, fever, chills. No other symptoms or modifying factors present at this time. Chief Complaint: Abdominal Pain Time Seen by MD: 10:18 Primary Care Provider: UNKNOWN Reviewed Notes: Medications, Allergies Allergies: Coded Allergies: Acetaminophen (Verified Allergy, Severe, 01/30/21) Codeine (Verified Allergy, Severe, 01/30/21) Home Meds Active Scripts Amoxicillin & Pot Clavulanate (Amoxicillin/Potassium Cla) 875 Mg Tab, 1 TAB PO BID for 7 Days, #14 TAB 0 Refills Prov:BINDU PLEITEZ 09/29/24 Lidocaine HCl (Mouth-Throat) (Lidocaine HCl Viscous) 2 % Gaye, 15 ML MT TID for 2 Days, #200 ML 0 Refills Prov:KENDY SMITH NP 08/23/24 Ibuprofen (Ibuprofen) 600 Mg Tab, 1 TAB PO TID for 10 Days, #30 TAB 0 Refills Prov:KENDY SMITH NP 08/23/24 Azithromycin (ZITHROMAX TABLET) 250 Mg Tb, 250 MG PO DAILY for 5 Days, #6 TAB 0 Refills Prov:KENDY SMITH NP 08/23/24 Ciprofloxacin-Dexamethasone (Ciprofloxacin/Dexamethaso 0.3-0.1 %) 1 Radha Radha, 4 DROP OT BID for 7 Days, #5 ML 0 Refills Prov:KENDY SMITH NP 08/23/24 Fluconazole (Diflucan) 150 Mg Tab, 1 TAB PO DAILY, #2 TAB 1 Refill Prov:TIANA PEREZ 04/27/24 Nitrofurantoin Monohydrate Mac (Macrobid) 100 Mg Cap, 100 MG PO BID for 7 Days, #14 CAP Prov:TIANA PEREZ YARD WORKER 04/27/24 Loperamide Hcl (Imodium A-D) 2 Mg Tab, 2 MG PO UD for 5 Days, #20 TAB 0 Refills Prov:TORSTEN SMITHO Apryl RONEL 03/31/24 Nitrofurantoin Monohydrate Mac (Macrobid) 100 Mg Cap, 100 MG PO BID for 7 Days, #14 CAP 0 Refills Prov:SARAHKENDY Apryl RONEL 03/31/24 Amoxicillin & Pot Clavulanate (AUGMENTIN TABLET) 875 Mg Tb, 875 MG PO BID for 5 Days, #10 TAB 0 Refills Prov:TORSTEN SIMTHO Apryl RONEL 02/02/24 Ibuprofen (Ibuprofen) 600 Mg Tab, 1 TAB PO TID for 30 Days, #90 TAB 0 Refills Prov:SARAHKENDYGeraldine Pink NP 02/02/24 Benzonatate (Benzonatate) 100 Mg Cap, 1 CAP PO TID for 10 Days, #30 CAP 0 Refills Prov:SARAHKENDY NP 02/02/24 Promethazine-Dm (Promethazine Dm 6.25-15 mg/5Ml) 1 Gaye Gaye, 5 ML PO TIDPRN PRN for 10 Days, #150 ML 0 Refills Prov:SARAHKENDYGeraldine Pink NP 02/02/24 Methylprednisolone (Medrol Dosepak) 4 Mg Mina, 4 MG PO UD for 5 Days, #21 TAB 0 Refills UAD Prov:SARAHKENDY NP 02/02/24 Cephalexin Monohydrate (Cephalexin) 500 Mg Cap, 1 CAP PO QID for 7 Days, #28 CAP 0 Refills Prov:SARAHKENDY NP 01/28/24 Diclofenac Sodium (Topical) (Voltaren Arthritis Pain) 1 % Gel, 1 % EX TIDPRN PRN for 30 Days, #60 GRAMS 0 Refills Prov:SARAHKENDY COBIAN Apryl RONEL 01/12/24 Lidocaine (Anorectal) (Lidocaine 5%) 5 % Cre, 5 % EX DAILYP PRN for 30 Days, #30 PATCH 0 Refills Prov:KENDY SMITH NP 01/12/24 Ibuprofen Micronized (Ibuprofen) 600 Mg Tab, 600 MG PO TIDWM for 30 Days, #90 TAB 0 Refills Prov:SARAHKENDY F HAZARDOUS MATERIALS HANDLER 01/12/24 Ofloxacin (Otic) (FLOXIN OTIC) [address], 5 DROP OT BID for 10 Days, #10 ML Prov:SHERRIE WASHINGTON Tamika HAZARDOUS MATERIALS HANDLER 12/21/23 Benzocaine-Menthol (Mouth-Thro (Cepacol Sore Throat) 1 Mayo Mayo, 1 MAYO MT Q4HPRN PRN, #24 MAYO as needed for sorethroat Prov:SHERRIE WASHINGTON Q HAZARDOUS MATERIALS HANDLER 12/21/23 Cetirizine Hcl (Zyrtec Allergy) 10 Mg Cap, 10 MG PO DAILY, #10 CAP as needed for nasal congestion Prov:SHERRIE WASHINGTON Tamika HAZARDOUS MATERIALS HANDLER 12/21/23 Ibuprofen Micronized (Ibuprofen) 600 Mg Tab, 1 TAB PO Q6HPRN PRN, #10 TAB as needed for pain Prov:SHERRIE WASHINGTON Q HAZARDOUS MATERIALS HANDLER 12/21/23 Famotidine (PEPCID TABLET) 20 Mg Tb, 1 TAB PO BID for 10 Days, #20 TAB Prov:SHERRIE WASHINGTON Tamika HAZARDOUS MATERIALS HANDLER 12/21/23 Prednisone (Prednisone) 20 Mg Tab, 1 TAB PO DAILY for 5 Days, #5 TAB start tomorrow for 4 days Prov:SHERRIE WASHINGTON Tamika HAZARDOUS MATERIALS HANDLER 12/21/23 Amoxicillin & Pot Clavulanate (AUGMENTIN TABLET) 875 Mg Tb, 1 TAB PO BID for 10 Days, #20 TAB Prov:SHERRIE WASHINGTON Tamika HAZARDOUS MATERIALS HANDLER 12/21/23 Tramadol Hcl (Tramadol Hcl) 50 Mg Tab, 50 MG PO Q12HP PRN for 5 Days, #10 TAB Prov:ACOSTA COLLINS MD 11/28/23 Ciprofloxacin Hcl (Cipro) 500 Mg Tab, 1 TAB PO BID, #14 TAB Prov:ACOSTA COLLINS MD 11/28/23 Fluticasone Propionate (Nasal) (Flonase Allergy Relief) 50 Mcg/Act Spr, 50 MCG NA DAILY PRN for 30 Days, #1 SPRAY Prov:ANGELIA QUEZADA YARD WORKER 10/12/23 Prednisone (Prednisone) 20 Mg Tab, 50 MG PO DAILY for 5 Days, #5 TAB Prov:ANGELIA QUEZADA YARD WORKER 10/12/23 Ibuprofen (Ibuprofen) 600 Mg Tab, 1 TAB PO TID, #30 TAB Prov:NICCI PETIT 03/20/23 Amoxicillin & Pot Clavulanate (AUGMENTIN TABLET) 875 Mg Tb, 875 MG PO BID, #20 TAB Prov:NICCI PETIT 03/20/23 Ondansetron (Zofran) 4 Mg Tab, 4 MG PO Q8HPRN PRN for 3 Days, #9 TAB Prov:ANTONIO MORIN MD 12/17/22 Acetaminophen (Acetaminophen) 500 Mg Tab, 500 MG PO Q4HPRN PRN, #30 TAB Prov:SAKINA FELIPE PAC 10/01/22 Loratadine (CLARITIN TABLET) 10 Mg Tb, 10 MG GT DAILY for 14 Days, #14 TAB Prov:SAKINA FELIPE PAC 10/01/22 Ciprofloxacin Hcl (Cipro) 500 Mg Tab, 1 TAB PO BID, #14 TAB Prov:NICCI PETIT 08/31/22 Omeprazole (Prilosec Susp (For Gt)) 40 Mg Ss, 40 MG PO DAILY, #20 ML Prov:NICCI PETIT 08/31/22 Ibuprofen (Ibuprofen) 800 Mg Tab, 1 TAB PO TID PRN, #30 TAB 0 Refills Prov:BINDU PLEITEZ 02/11/22 Cyclobenzaprine Hcl (Cyclobenzaprine Hcl) 5 Mg Tab, 1 TAB PO QPM PRN, #14 TAB 0 Refills Prov:BINDU PLEITEZ 02/11/22 Nitrofurantoin Monohydrate Mac (Macrobid) 100 Mg Cap, 100 MG PO BID for 7 Days, #14 CAP Prov:CLARE ASHER MD 12/04/21 Prednisone (Prednisone) 20 Mg Tab, 20 MG PO BID for 5 Days, #10 MG Prov:BINDU PLEITEZ 10/02/21 Albuterol Sulfate (Albuterol Sulfate Hfa) 108 Mcg/Act Aer, 108 MCG IN QIDP, #1 AER Prov:BINDU PLEITEZ 10/02/21 Amoxicillin & Pot Clavulanate (Amoxicillin/Potassium Cla) 875 Mg Tab, 1 TAB PO BID, #14 TAB Prov:BINDU PLEITEZ 10/02/21 Ibuprofen (Ibuprofen) 800 Mg Tab, 1 TAB PO TID PRN, #30 TAB Prov:BINDU PLETIEZ 10/02/21 Information Source: Patient Mode of Arrival: Ambulatory Timing: Months Duration: Since onset Prehospital treatment: None Quality: Aching, Cramping Severity: Moderate Recent: None Recent Hx of: Other (ozempic) Pain Location: Diffuse Modifying Factors: Nothing Associated sign and symptoms: Nausea, Vomiting, Abdominal Pain Past Medical History PAST MEDICAL HISTORY: Anxiety, GERD Surgical History: BTL, , 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 Family History Family History: Unknown Social History Smoker: Non-Smoker Alcohol: Occasionally Drugs: Denies Drug Use Lives In: Home Constitutional: denies: chills, diaphoresis, fatigue, fever, malaise, sweats, weakness, others EENTM: reports: throat pain; denies: blurred vision, double vision, ear bleeding, ear discharge, ear drainage, ear pain, ear ringing, eye pain, eye redness, hearing loss, mouth pain, mouth swelling, nasal discharge, nose bleeding, nose congestion, nose pain, photophobia, tearing, throat swelling, voice changes, others Respiratory: denies: cough, hemoptysis, orthopnea, SOB at rest, shortness of breath, SOB with excertion, stridor, wheezing, others Cardiovascular: denies: chest pain, dizzy spells, diaphoresis, Dyspnea on exertion, edema, irregular heart beat, left arm pain, lightheadedness, palpitations, PND, syncope, others Gastrointestinal: reports: abdominal pain, nausea, vomiting; denies: abdomen distended, blood streaked bowels, constipated, diarrhea, dysphagia, difficulty swallowing, hematemesis, melena, poor appetite, poor fluid intake, rectal bleeding, rectal pain, others Genitourinary: denies: abnormal vagina bleeding, burning, dyspareunia, dysuria, flank pain, frequency, hematuria, incontinence, pain, , vagina discharge, urgency, others Neurological: denies: dizziness, fainting, headache, left sided numbness, left sided weakness, numbness, paresthesia, pre-existing deficit, right sided numbness, right sided weakness, seizure, speech problems, tingling, tremors, weakness, others Musculoskeletal: reports: back pain; denies: gout, joint pain, joint swelling, muscle pain, muscle stiffness, neck pain, others Integumetry: denies: bruises, change in color, change in hair/nails, dryness, laceration, lesions, lumps, rash, wounds, others Allergic/Immunocompromised: denies: Difficulty Healing, Frequent Infections, Hives, Itching, others Hematologic/Lymphatic: denies: anemia, blood clots, easy bleeding, easy bruising, swollen glands, others Endocrine: denies: excessive hunger, excessive sweating, excessive thirst, excessive urination, flushing, intolerance to cold, intolerance to heat, unexplained weight gain, unexplained weight loss, others Psychiatric: denies: anxiety, bipolar disorder, depression, hopeless, panic disorder, schizophrenia, sleepless, suicidal, others All Other Systems: Reviewed and Negative Physical Exam General Appearance: No Apparent Distress, Normal HEENT: Normal ENT Inspection, Pharynx Normal, TMs Normal Neck: Full Range of Motion, Non-Tender, Normal, Normal Inspection Respiratory: Chest Non-Tender, Lungs Clear, No Accessory Muscle Use, No Respiratory Distress, Normal Breath Sounds Cardiovascular: No Edema, No JVD, No Murmur, No Gallop, Normal Peripheral Pulses, Regular Rate/Rhythm Breast Exam: Deferred Gastrointestinal: No Organomegaly, Non Tender, No Pulsatile Mass, Normal Bowel Sounds, Soft Genitalia: Deferred Pelvic: Deferred Rectal: Deferred Extremities: No calf tenderness, Normal capillary refill, Normal inspection, Normal range of motion, Non-tender, No pedal edema Musculoskeletal : Apperance: Normal Neurologic: Alert, aeronautical engineering officer II-XII nml as Tested, No Motor Deficits, Normal Affect, Normal Mood, No Sensory Deficits Cerebellar Function: Normal Reflexes: Normal Skin: Dry, Normal Color, Warm Lymphatic: No Adenopathy Was a procedure done? Was a procedure done?: No GI differential Dx Differential Diagnosis: Cholecystitis, Gastritis/PUD, Gastroenteritis, UTI, Urolithiasis, Electrolyte Imbalance, Viral X-Ray, Labs, Meds, VS Vital Signs Date Time Temp Pulse Resp B/P (MAP) Pulse Ox O2 Delivery O2 Flow Rate FiO2 01/11/25 10:15 69 18 99 Room Air* 0 21 01/11/25 10:15 98.1 69 18 118/79 (92) 99 98.1 01/11/25 08:40 98.2 80 17 118/70 (86) 97 98.2 Lab Test 01/11/25 11:48 01/11/25 08:34 Range/Units White Blood Count 8.6 4.4-10.8 10^3/uL Red Blood Count 4.64 4.0-5.20 10^6/uL Hemoglobin 13.8 12.2-16.2 g/dL Hematocrit 40.7 36.0-46.0 % Mean Corpuscular Volume 87.7 80.0-100.0 fL Mean Corpuscular Hemoglobin 29.7 28.0-32.0 pg Mean Corpuscular Hemoglobin Concent 33.9 32.0-36.0 g/dL Red Cell Distribution Width 13.8 11.8-14.3 % Platelet Count 211 140-450 10^3/uL Mean Platelet Volume 9.8 6.9-10.8 fL Neutrophils (%) (Auto) 73.8 37.0-80.0 % Lymphocytes (%) (Auto) 21.2 10.0-50.0 % Monocytes (%) (Auto) 4.1 0.0-12.0 % Eosinophils (%) (Auto) 0.5 0.0-7.0 % Basophils (%) (Auto) 0.4 0.0-2.0 % Neutrophils # (Auto) 6.3 1.6-8.6 10 ^3/uL Lymphocytes # (Auto) 1.8 0.4-5.4 10 ^3/uL Monocytes # (Auto) 0.4 0-1.3 10 ^3/uL Eosinophils # (Auto) 0 0-0.8 10 ^3/uL Basophils # (Auto) 0 0-0.2 10 ^3/uL Nucleated Red Blood Cells 0.0 % Sodium Level 137 136-145 mmol/L Potassium Level 3.8 3.5-5.1 mmol/L Chloride Level 105 98-107 mmol/L Carbon Dioxide Level 25 20-31 mmol/L Anion Gap 7 5-15 Blood Urea Nitrogen 7 L 9-23 mg/dL Creatinine 0.69 0.550-1.02 mg/dL Glomerular Filtration Rate Calc 113 >90 mL/min BUN/Creatinine Ratio 10.1 10.0-20.0 Serum Glucose 91 74-106 mg/dL Calcium Level 9.3 8.7-10.4 mg/dL Total Bilirubin 0.5 0.2-1.0 mg/dL Aspartate Amino Transferase (AST) 9 L 13-40 U/L Alanine Aminotransferase (ALT) < 9 7-40 U/L Alkaline Phosphatase 59 46-116 U/L Total Protein 7.8 5.7-8.2 g/dL Albumin 4.4 3.2-4.8 g/dL Lipase 39 12-53 U/L Urine Color Light-yellow Yellow Urine Clarity Clear Clear Urine pH 6.0 5.0-9.0 Urine Specific [place] 1.021 1.001-1.035 Urine Protein Negative Negative Urine Ketones Negative Negative Urine Blood Negative Negative /uL Urine Nitrite Negative Negative Urine Bilirubin Negative Negative Urine Urobilinogen Normal Negative mg/dL Urine Leukocyte Esterase Negative Negative /uL Urine RBC 1 0 - 4 /hpf Urine Microscopic WBC < 1 0-5 /HPF Urine Squamous Epithelial Cells Few <5 /hpf Urine Bacteria None seen None Seen /hpf Urine Mucus Few None Seen Urine Glucose Normal Normal mg/dL Time of 1ST Reevaluation: 10:48 Reevaluation 1ST: Unchanged Patient Education/Counseling: Diagnosis, Treatment, Prognosis Family Education/Counseling: No Family Present Additional Information The following tests were ordered, and results were reviewed by me: JOSE, Additional Information was gathered from interviewing the following independent historians: I reviewed and agreed with the following test results read by other providers: I discussed treatment and results with medical personnel and: Patient Comprehensive systems review obtained and negative except for what is stated in the HPI. Departure 1 Departure Time of Disposition: 13:57 (Patient likely still having a reaction to Ozempic. We will discharge patient home with outpatient follow up) Impression: Primary Impression: Acute abdominal pain Disposition: 01 HOME / SELF CARE / HOMELESS Condition: Stable Referrals: NICOLÁS NOVAK MD Additional Instructions: Your workup today was benign including normal labs.. You may be still suffering from a drug reaction. You were referred to our developer support engineer. Please call for an appointment. Your prescribed Bentyl and Zofran as as these may help with nausea and stomach spasms. If your symptoms worsen you should return to the emergency room. e-Prescriptions Ondansetron Odt 4MG Tab (ZOFRAN PO) 4 Mg Tb 4 MG PO TID PRN for 4 Days, #12 TAB ODT TAB-DISSOLVE IN MOUTH, THEN SWALLOW Prov: BANDAR SIEGEL MD 01/11/25 Dicyclomine Hcl (BENTYL CAPSULE) 10 Mg Cp 1 CAP PO TID PRN for 7 Days, #90 CAP 11 Refills Prov: BANDAR SIEGEL MD 01/11/25 Discharged With: Self Critical Care Note Critical Care Time?: No Stability Stability form required: No I personally scribed for BANDAR SIEGEL MD ([email or web address]) on 01/11/25 at 10:42. E lectronically submitted by Ruby Pompa ([email or web address]). I personally scribed for BANDAR SIEGEL MD ([email or web address]) on 01/11/25 at 11:10. Electr onically submitted by Ruby Pompa ([email or web address]). BANDAR SIEGEL MD Jan 11, 2025 10:42
[2025-01-11 12:04] LABS: Basophils # (auto) 0 10 ^3/uL (0-0.2); Basophils % (auto) 0.4 % (0.0-2.0); Eosinophils # (auto) 0 10 ^3/uL (0-0.8); Eosinophils % (auto) 0.5 % (0.0-7.0); Hematocrit 40.7 % (36.0-46.0); Hemoglobin 13.8 g/dL (12.2-16.2); Lymphocytes # (auto) 1.8 10 ^3/uL (0.4-5.4); Lymphocytes % (auto) 21.2 % (10.0-50.0); Mean Corpuscular Hemoglobin 29.7 pg (28.0-32.0); Mean Corpuscular Hgb Conc. 33.9 g/dL (32.0-36.0); Mean Corpuscular Volume 87.7 fL (80.0-100.0); Monocytes # (auto) 0.4 10 ^3/uL (0-1.3); Monocytes % (auto) 4.1 % (0.0-12.0); Neutrophils # (auto) 6.3 10 ^3/uL (1.6-8.6); Neutrophils % (auto) 73.8 % (37.0-80.0); Platelet Count (auto) 211 10^3/uL (140-450); Red Blood Cells 4.64 10^6/uL (4.0-5.20); Red Cell Distribution Width 13.8 % (11.8-14.3); White Blood Cell 8.6 10^3/uL (4.4-10.8)
[2025-01-11 12:20] LABS: Albumin 4.4 g/dL (3.2-4.8); Alkaline Phosphatase 59 U/L (46-116); Anion Gap 7 (5-15); BUN/Creatinine Ratio 10.1 (10.0-20.0); Bilirubin, Total 0.5 mg/dL (0.2-1.0); Calcium 9.3 mg/dL (8.7-10.4); Carbon Dioxide 25 mmol/L (20-31); Chloride 105 mmol/L (98-107); Glucose 91 mg/dL (74-106); Lipase 39 U/L (12-53); Potassium 3.8 mmol/L (3.5-5.1); Sodium 137 mmol/L (136-145); Total Protein 7.8 g/dL (5.7-8.2)
[2025-01-11 12:21] LABS: Alanine Aminotransferase < 9 U/L (7-40); Aspartate Aminotransferase 9 U/L (13-40); Blood Urea Nitrogen 7 mg/dL (9-23)
[2025-01-11] MEDS ORDERED: DICY10CA PO (13:59)
[2025-01-11] MEDS ORDERED: ZOFR4T PO (13:59)
[2025-01-11] MEDS: FAMOTIDINE 20 MG TAB PO ONE (14:35)
[2025-01-11] MEDS: DICYCLOMINE HCL 10 MG CAP PO ONE (14:35)
[2025-01-11 14:40] VITALS: BP 119/83; PULSE 70; RESP 18; TEMP 98; O2SAT 100
== END 2025-01-11 14:40 | disposition home or self-care (01) ==
LOC: ER 08:14
DX: R10.84 Generalized abdominal pain (principal); F41.9 Anxiety disorder, unspecified; J44.9 Chronic obstructive pulmonary disease, unspecified; Z87.59 Personal history of other complications of pregnancy, childbirth and the puerperium; Z98.51 Tubal ligation status; Z79.899 Other long term (current) drug therapy; Z88.5 Allergy status to narcotic agent
CPT/HCPCS: 36415; 80053; 81001; 83690; 85025; 99283; J0500

== ENCOUNTER 2025-01-31 09:10 | Emergency (ER) | payer MEDICAID ==
[~2025-01-31] VITALS: Ht 154.9 cm; Wt 81.6 kg
[~2025-01-31 09:10] MED LIST changes: +DICY10CA PO; +ZOFR4T PO
--- NOTE | 2025-01-31 09:30 | ED.PDOC ---
History of Present Illness HPI Comments 39-year-old female presents with a chief complaint of earache and headache x onset yesterday. Patient states that right now her left ear has been hurting. Patient endorses using Q-tips in her ears recently. Patient is experiencing a headache at this time. Chief Complaint: Flu like Time Seen by MD: 09:15 Primary Care Provider: UNKNOWN Reviewed Notes: Medications, Allergies Allergies: Coded Allergies: Acetaminophen (Verified Allergy, Severe, 01/30/21) Codeine (Verified Allergy, Severe, 01/30/21) Home Meds Active Scripts Ondansetron Odt 4MG Tab (ZOFRAN PO) 4 Mg Tb, 4 MG PO TID PRN for 4 Days, #12 TAB ODT TAB-DISSOLVE IN MOUTH, THEN SWALLOW Prov:BANDAR SIEGEL MD 01/11/25 Dicyclomine Hcl (BENTYL CAPSULE) 10 Mg Cp, 1 CAP PO TID PRN for 7 Days, #90 CAP 11 Refills Prov:BANDAR SIEGEL MD 01/11/25 Amoxicillin & Pot Clavulanate (Amoxicillin/Potassium Cla) 875 Mg Tab, 1 TAB PO BID for 7 Days, #14 TAB 0 Refills Prov:BINDU PLEITEZ 09/29/24 Lidocaine HCl (Mouth-Throat) (Lidocaine HCl Viscous) 2 % Gaye, 15 ML MT TID for 2 Days, #200 ML 0 Refills Prov:KENDY SMITH NP 08/23/24 Ibuprofen (Ibuprofen) 600 Mg Tab, 1 TAB PO TID for 10 Days, #30 TAB 0 Refills Prov:KENDY SMITH NP 08/23/24 Azithromycin (ZITHROMAX TABLET) 250 Mg Tb, 250 MG PO DAILY for 5 Days, #6 TAB 0 Refills Prov:KENDY SMITH NP 08/23/24 Ciprofloxacin-Dexamethasone (Ciprofloxacin/Dexamethaso 0.3-0.1 %) 1 Radha Radha, 4 DROP OT BID for 7 Days, #5 ML 0 Refills Prov:KENDY SMITH NP 08/23/24 Fluconazole (Diflucan) 150 Mg Tab, 1 TAB PO DAILY, #2 TAB 1 Refill Prov:TIANA PEREZ 04/27/24 Nitrofurantoin Monohydrate Mac (Macrobid) 100 Mg Cap, 100 MG PO BID for 7 Days, #14 CAP Prov:TIANA PEREZ SHIPPING AND RECEIVING ASSISTANT 04/27/24 Loperamide Hcl (Imodium A-D) 2 Mg Tab, 2 MG PO UD for 5 Days, #20 TAB 0 Refills Prov:TORSTEN SMITHO Apryl RONEL 03/31/24 Nitrofurantoin Monohydrate Mac (Macrobid) 100 Mg Cap, 100 MG PO BID for 7 Days, #14 CAP 0 Refills Prov:SARAHKENDY Apryl RONEL 03/31/24 Amoxicillin & Pot Clavulanate (AUGMENTIN TABLET) 875 Mg Tb, 875 MG PO BID for 5 Days, #10 TAB 0 Refills Prov:TORSTEN SMITHO Apryl RONEL 02/02/24 Ibuprofen (Ibuprofen) 600 Mg Tab, 1 TAB PO TID for 30 Days, #90 TAB 0 Refills Prov:SARAHKENDY Apryl RONEL 02/02/24 Benzonatate (Benzonatate) 100 Mg Cap, 1 CAP PO TID for 10 Days, #30 CAP 0 Refills Prov:SARAHKENDYGeraldine Pink NP 02/02/24 Promethazine-Dm (Promethazine Dm 6.25-15 mg/5Ml) 1 Gaye Gaye, 5 ML PO TIDPRN PRN for 10 Days, #150 ML 0 Refills Prov:TORSTEN SMITHGeraldine Pink NP 02/02/24 Methylprednisolone (Medrol Dosepak) 4 Mg Mina, 4 MG PO UD for 5 Days, #21 TAB 0 Refills UAD Prov:SARAHKENDY NP 02/02/24 Cephalexin Monohydrate (Cephalexin) 500 Mg Cap, 1 CAP PO QID for 7 Days, #28 CAP 0 Refills Prov:SARAHKENDYGeraldine Pink NP 01/28/24 Diclofenac Sodium (Topical) (Voltaren Arthritis Pain) 1 % Gel, 1 % EX TIDPRN PRN for 30 Days, #60 GRAMS 0 Refills Prov:SARAHKENDY COBIAN Apryl RONEL 01/12/24 Lidocaine (Anorectal) (Lidocaine 5%) 5 % Cre, 5 % EX DAILYP PRN for 30 Days, #30 PATCH 0 Refills Prov:SARAHKENDY COBIAN Apryl RONEL 01/12/24 Ibuprofen Micronized (Ibuprofen) 600 Mg Tab, 600 MG PO TIDWM for 30 Days, #90 TAB 0 Refills Prov:KENDY SMITH VISUAL AND STOCK ASSOCIATE 01/12/24 Ofloxacin (Otic) (FLOXIN OTIC) [address], 5 DROP OT BID for 10 Days, #10 ML Prov:SHERRIE WASHINGTON Tamika VISUAL AND STOCK ASSOCIATE 12/21/23 Benzocaine-Menthol (Mouth-Thro (Cepacol Sore Throat) 1 Mayo Mayo, 1 MAYO MT Q4HPRN PRN, #24 MAYO as needed for sorethroat Prov:SHERRIE WASHINGTON Tamika VISUAL AND STOCK ASSOCIATE 12/21/23 Cetirizine Hcl (Zyrtec Allergy) 10 Mg Cap, 10 MG PO DAILY, #10 CAP as needed for nasal congestion Prov:SHERRIE WASHINGTON Q VISUAL AND STOCK ASSOCIATE 12/21/23 Ibuprofen Micronized (Ibuprofen) 600 Mg Tab, 1 TAB PO Q6HPRN PRN, #10 TAB as needed for pain Prov:SHERRIE WASHINGTON Q VISUAL AND STOCK ASSOCIATE 12/21/23 Famotidine (PEPCID TABLET) 20 Mg Tb, 1 TAB PO BID for 10 Days, #20 TAB Prov:SHERRIE WASHINGTON Tamika VISUAL AND STOCK ASSOCIATE 12/21/23 Prednisone (Prednisone) 20 Mg Tab, 1 TAB PO DAILY for 5 Days, #5 TAB start tomorrow for 4 days Prov:SHERRIE WASHINGTON Tamika VISUAL AND STOCK ASSOCIATE 12/21/23 Amoxicillin & Pot Clavulanate (AUGMENTIN TABLET) 875 Mg Tb, 1 TAB PO BID for 10 Days, #20 TAB Prov:SHERRIE WASHINGTON Tamika VISUAL AND STOCK ASSOCIATE 12/21/23 Tramadol Hcl (Tramadol Hcl) 50 Mg Tab, 50 MG PO Q12HP PRN for 5 Days, #10 TAB Prov:ACOSTA COLLINS MD 11/28/23 Ciprofloxacin Hcl (Cipro) 500 Mg Tab, 1 TAB PO BID, #14 TAB Prov:ACOSTA COLLINS MD 11/28/23 Fluticasone Propionate (Nasal) (Flonase Allergy Relief) 50 Mcg/Act Spr, 50 MCG NA DAILY PRN for 30 Days, #1 SPRAY Prov:ANGELIA QUEZADA SHIPPING AND RECEIVING ASSISTANT 10/12/23 Prednisone (Prednisone) 20 Mg Tab, 50 MG PO DAILY for 5 Days, #5 TAB Prov:ANGELIA QUEZADA SHIPPING AND RECEIVING ASSISTANT 10/12/23 Ibuprofen (Ibuprofen) 600 Mg Tab, 1 TAB PO TID, #30 TAB Prov:NICCI PETIT 03/20/23 Amoxicillin & Pot Clavulanate (AUGMENTIN TABLET) 875 Mg Tb, 875 MG PO BID, #20 TAB Prov:NICCI PETIT 03/20/23 Ondansetron (Zofran) 4 Mg Tab, 4 MG PO Q8HPRN PRN for 3 Days, #9 TAB Prov:ANTONIO MORIN MD 12/17/22 Acetaminophen (Acetaminophen) 500 Mg Tab, 500 MG PO Q4HPRN PRN, #30 TAB Prov:SAKINA FELIPE PAC 10/01/22 Loratadine (CLARITIN TABLET) 10 Mg Tb, 10 MG GT DAILY for 14 Days, #14 TAB Prov:SAKINA FELIPE PAC 10/01/22 Ciprofloxacin Hcl (Cipro) 500 Mg Tab, 1 TAB PO BID, #14 TAB Prov:NICCI PETIT 08/31/22 Omeprazole (Prilosec Susp (For Gt)) 40 Mg Ss, 40 MG PO DAILY, #20 ML Prov:NICCI PETIT 08/31/22 Ibuprofen (Ibuprofen) 800 Mg Tab, 1 TAB PO TID PRN, #30 TAB 0 Refills Prov:BINDU PLEITEZ 02/11/22 Cyclobenzaprine Hcl (Cyclobenzaprine Hcl) 5 Mg Tab, 1 TAB PO QPM PRN, #14 TAB 0 Refills Prov:BINDU PLEITEZ 02/11/22 Nitrofurantoin Monohydrate Mac (Macrobid) 100 Mg Cap, 100 MG PO BID for 7 Days, #14 CAP Prov:CLARE ASHER MD 12/04/21 Prednisone (Prednisone) 20 Mg Tab, 20 MG PO BID for 5 Days, #10 MG Prov:BINDU PLEITEZ 10/02/21 Albuterol Sulfate (Albuterol Sulfate Hfa) 108 Mcg/Act Aer, 108 MCG IN QIDP, #1 AER Prov:BINDU PLEITEZ 10/02/21 Amoxicillin & Pot Clavulanate (Amoxicillin/Potassium Cla) 875 Mg Tab, 1 TAB PO BID, #14 TAB Prov:BINDU PLEITEZ 10/02/21 Ibuprofen (Ibuprofen) 800 Mg Tab, 1 TAB PO TID PRN, #30 TAB Prov:BINDU PLEITEZ 10/02/21 Information Source: Patient Mode of Arrival: Ambulatory Severity: Moderate Timing: Days Duration: Since onset Prehospital treatment: None Past Medical History PAST MEDICAL HISTORY: Anxiety, GERD Surgical History: BTL, , 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 Family History Family History: Unknown Social History Smoker: Non-Smoker Alcohol: Occasionally Drugs: Denies Drug Use Lives In: Home Constitutional: denies: chills, diaphoresis, fatigue, fever, malaise, sweats, weakness, others EENTM: reports: ear pain; denies: blurred vision, double vision, ear bleeding, ear discharge, ear drainage, ear ringing, eye pain, eye redness, hearing loss, mouth pain, mouth swelling, nasal discharge, nose bleeding, nose congestion, nose pain, photophobia, tearing, throat pain, throat swelling, voice changes, others Respiratory: denies: cough, hemoptysis, orthopnea, SOB at rest, shortness of breath, SOB with excertion, stridor, wheezing, others Cardiovascular: denies: chest pain, dizzy spells, diaphoresis, Dyspnea on exertion, edema, irregular heart beat, left arm pain, lightheadedness, palpitations, PND, syncope, others Gastrointestinal: denies: abdomen distended, abdominal pain, blood streaked bowels, constipated, diarrhea, dysphagia, difficulty swallowing, hematemesis, melena, nausea, poor appetite, poor fluid intake, rectal bleeding, rectal pain, vomiting, others Genitourinary: denies: abnormal vagina bleeding, burning, dyspareunia, dysuria, flank pain, frequency, hematuria, incontinence, pain, , vagina discharge, urgency, others Neurological: reports: headache; denies: dizziness, fainting, left sided numbness, left sided weakness, numbness, paresthesia, pre-existing deficit, right sided numbness, right sided weakness, seizure, speech problems, tingling, tremors, weakness, others Musculoskeletal: denies: back pain, gout, joint pain, joint swelling, muscle pain, muscle stiffness, neck pain, others Integumetry: denies: bruises, change in color, change in hair/nails, dryness, laceration, lesions, lumps, rash, wounds, others Allergic/Immunocompromised: denies: Difficulty Healing, Frequent Infections, Hives, Itching, others Hematologic/Lymphatic: denies: anemia, blood clots, easy bleeding, easy bruising, swollen glands, others Endocrine: denies: excessive hunger, excessive sweating, excessive thirst, excessive urination, flushing, intolerance to cold, intolerance to heat, unexplained weight gain, unexplained weight loss, others Psychiatric: denies: anxiety, bipolar disorder, depression, hopeless, panic disorder, schizophrenia, sleepless, suicidal, others All Other Systems: Reviewed and Negative Physical Exam General Appearance: No Apparent Distress, Normal HEENT: Normal ENT Inspection, Pharynx Normal, TMs Normal Neck: Full Range of Motion, Non-Tender, Normal, Normal Inspection Respiratory: Chest Non-Tender, Lungs Clear, No Accessory Muscle Use, No Respiratory Distress, Normal Breath Sounds Cardiovascular: No Edema, No JVD, No Murmur, No Gallop, Normal Peripheral Pulses, Regular Rate/Rhythm Breast Exam: Deferred Gastrointestinal: No Organomegaly, Non Tender, No Pulsatile Mass, Normal Bowel Sounds, Soft Genitalia: Deferred Pelvic: Deferred Rectal: Deferred Extremities: No calf tenderness, Normal capillary refill, Normal inspection, Normal range of motion, Non-tender, No pedal edema Musculoskeletal : Apperance: Normal Neurologic: Alert, amr physician II-XII nml as Tested, No Motor Deficits, Normal Affect, Normal Mood, No Sensory Deficits Cerebellar Function: Normal Reflexes: Normal Skin: Dry, Normal Color, Warm Lymphatic: No Adenopathy Was a procedure done? Was a procedure done?: No Differential Dx Considerations may include: OM, OE, FB in ear TM rupture X-Ray, Labs, Meds, VS Vital Signs Date Time Temp Pulse Resp B/P (MAP) Pulse Ox O2 Delivery O2 Flow Rate FiO2 01/31/25 09:17 98.0 65 18 112/74 (87) 100 98.0 Time of 1ST Reevaluation: 09:58 Reevaluation 1ST: Unchanged Patient Education/Counseling: Diagnosis, Treatment, Prognosis, Need For Follow Up Family Education/Counseling: No Family Present Departure 1 Departure Time of Disposition: 09:39 Impression: Primary Impression: Otitis externa Disposition: HOME / SELF CARE / HOMELESS Condition: Good e-Prescriptions Zoxjldey-Arkahhcph-Hy (Otic) (Cortisporin Otic Susp) 1 Drop 3 DROP EACH EAR TID, #10 ML Prov: YOANNA XAVIER MD 01/31/25 Discharged With: Self Critical Care Note Critical Care Time?: No Stability Stability form required: No Heart Score Heart Score: Heart Score Response (Comments) Value History N/A 0 EKG N/A 0 Age N/A 0 Risk Factors N/A 0 Troponin N/A 0 Total 0 I personally scribed for YOANNA XAVIER MD ([email or web address]) on 01/31/25 at 09:30. Electronically submitted by Jeevan Lee ([email or web address]). YOANNA XAVIER MD Jan 31, 2025 09:30
[2025-01-31] MEDS ORDERED: COROSUS EACH EAR (09:39)
[2025-01-31 09:48] VITALS: BP 129/78; PULSE 69; RESP 17; TEMP 99; O2SAT 96
== END 2025-01-31 09:59 | disposition home or self-care (01) ==
LOC: ER 09:10
DX: H60.92 Unspecified otitis externa, left ear (principal); F41.9 Anxiety disorder, unspecified; K21.9 Gastro-esophageal reflux disease without esophagitis; Z98.51 Tubal ligation status; Z98.890 Other specified postprocedural states; Z79.899 Other long term (current) drug therapy; Z79.1 Long term (current) use of non-steroidal anti-inflammatories (NSAID); Z88.5 Allergy status to narcotic agent

== ENCOUNTER 2025-02-11 19:17 | Emergency (ER) | payer MEDICAID ==
[~2025-02-11] VITALS: Ht 154.9 cm; Wt 82.1 kg
[~2025-02-11 19:17] MED LIST changes: +COROSUS EACH EAR
--- NOTE | 2025-02-11 20:36 | ED.PDOC ---
Carlos. trauma (HPI) HPI Comments PT PRESENTED TO ED FOR SLIP & FALL IN RESTROOM X2 DAYS AGO. PT STATED FLOOR WAS WET. (+) NUMBNESS/TINGLING TO BUE. CAP REFILL <3. Chief Complaint: Fall Injury Time Seen by MD: 19:22 Primary Care Provider: OKSANA Reviewed notes: Nurses Notes, Medications, Allergies Allergies: Coded Allergies: Acetaminophen (Verified Allergy, Severe, 01/30/21) Codeine (Verified Allergy, Severe, 01/30/21) Home Meds Active Scripts Fcnossiw-Kvzqhjwje-Ex (Otic) (Cortisporin Otic Susp) [address], 3 DROP EACH EAR TID, #10 ML Prov:YOANNA XAVIER MD 01/31/25 Ondansetron Odt 4MG Tab (ZOFRAN PO) 4 Mg Tb, 4 MG PO TID PRN for 4 Days, #12 TAB ODT TAB-DISSOLVE IN MOUTH, THEN SWALLOW Prov:BANDAR SIEGEL MD 01/11/25 Dicyclomine Hcl (BENTYL CAPSULE) 10 Mg Cp, 1 CAP PO TID PRN for 7 Days, #90 CAP 11 Refills Prov:BANDAR SIEGEL MD 01/11/25 Amoxicillin & Pot Clavulanate (Amoxicillin/Potassium Cla) 875 Mg Tab, 1 TAB PO BID for 7 Days, #14 TAB 0 Refills Prov:BINDU PLEITEZ 09/29/24 Lidocaine HCl (Mouth-Throat) (Lidocaine HCl Viscous) 2 % Gaye, 15 ML MT TID for 2 Days, #200 ML 0 Refills Prov:KENDY SMITH NP 08/23/24 Ibuprofen (Ibuprofen) 600 Mg Tab, 1 TAB PO TID for 10 Days, #30 TAB 0 Refills Prov:KENDY SMITH NP 08/23/24 Azithromycin (ZITHROMAX TABLET) 250 Mg Tb, 250 MG PO DAILY for 5 Days, #6 TAB 0 Refills Prov:KENDY SMITH NP 08/23/24 Ciprofloxacin-Dexamethasone (Ciprofloxacin/Dexamethaso 0.3-0.1 %) 1 Radha Radha, 4 DROP OT BID for 7 Days, #5 ML 0 Refills Prov:KENDY SMITH NP 08/23/24 Fluconazole (Diflucan) 150 Mg Tab, 1 TAB PO DAILY, #2 TAB 1 Refill Prov:TIANA PEREZ MOLD COOLER 04/27/24 Nitrofurantoin Monohydrate Mac (Macrobid) 100 Mg Cap, 100 MG PO BID for 7 Days, #14 CAP Prov:TIANA PEREZ MOLD COOLER 04/27/24 Loperamide Hcl (Imodium A-D) 2 Mg Tab, 2 MG PO UD for 5 Days, #20 TAB 0 Refills Prov:KENDY SMITH LICENSED SALES PRODUCER 03/31/24 Nitrofurantoin Monohydrate Mac (Macrobid) 100 Mg Cap, 100 MG PO BID for 7 Days, #14 CAP 0 Refills Prov:KENDY SMITH LICENSED SALES PRODUCER 03/31/24 Amoxicillin & Pot Clavulanate (AUGMENTIN TABLET) 875 Mg Tb, 875 MG PO BID for 5 Days, #10 TAB 0 Refills Prov:KENDY SMITH LICENSED SALES PRODUCER 02/02/24 Ibuprofen (Ibuprofen) 600 Mg Tab, 1 TAB PO TID for 30 Days, #90 TAB 0 Refills Prov:KENDY SMITH RONEL 02/02/24 Benzonatate (Benzonatate) 100 Mg Cap, 1 CAP PO TID for 10 Days, #30 CAP 0 Refills Prov:KENDY SMITH RONEL 02/02/24 Promethazine-Dm (Promethazine Dm 6.25-15 mg/5Ml) 1 Gaye Gaye, 5 ML PO TIDPRN PRN for 10 Days, #150 ML 0 Refills Prov:KENDY SMITH RONEL 02/02/24 Methylprednisolone (Medrol Dosepak) 4 Mg Mina, 4 MG PO UD for 5 Days, #21 TAB 0 Refills UAD Prov:KENDY SMITH RONEL 02/02/24 Cephalexin Monohydrate (Cephalexin) 500 Mg Cap, 1 CAP PO QID for 7 Days, #28 CAP 0 Refills Prov:TORSTEN SMITHO Apryl RONEL 01/28/24 Diclofenac Sodium (Topical) (Voltaren Arthritis Pain) 1 % Gel, 1 % EX TIDPRN PRN for 30 Days, #60 GRAMS 0 Refills Prov:TORSTEN SMITHO Apryl RONEL 01/12/24 Lidocaine (Anorectal) (Lidocaine 5%) 5 % Cre, 5 % EX DAILYP PRN for 30 Days, #30 PATCH 0 Refills Prov:TORSTEN SMITHO Apryl LICENSED SALES PRODUCER 01/12/24 Ibuprofen Micronized (Ibuprofen) 600 Mg Tab, 600 MG PO TIDWM for 30 Days, #90 TAB 0 Refills Prov:KENDY SMITH LICENSED SALES PRODUCER 01/12/24 Ofloxacin (Otic) (FLOXIN OTIC) [address], 5 DROP OT BID for 10 Days, #10 ML Prov:SHERRIE WASHINGTON Q LICENSED SALES PRODUCER 12/21/23 Benzocaine-Menthol (Mouth-Thro (Cepacol Sore Throat) 1 Mayo Mayo, 1 MAYO MT Q4HPRN PRN, #24 MAYO as needed for sorethroat Prov:WASHINGTONSHERRIE Q LICENSED SALES PRODUCER 12/21/23 Cetirizine Hcl (Zyrtec Allergy) 10 Mg Cap, 10 MG PO DAILY, #10 CAP as needed for nasal congestion Prov:WASHINGTONSHERRIE Q LICENSED SALES PRODUCER 12/21/23 Ibuprofen Micronized (Ibuprofen) 600 Mg Tab, 1 TAB PO Q6HPRN PRN, #10 TAB as needed for pain Prov:FELIXSHERRIE Q LICENSED SALES PRODUCER 12/21/23 Famotidine (PEPCID TABLET) 20 Mg Tb, 1 TAB PO BID for 10 Days, #20 TAB Prov:FELIXSHERRIE Q LICENSED SALES PRODUCER 12/21/23 Prednisone (Prednisone) 20 Mg Tab, 1 TAB PO DAILY for 5 Days, #5 TAB start tomorrow for 4 days Prov:FELIXSHERRIE Q LICENSED SALES PRODUCER 12/21/23 Amoxicillin & Pot Clavulanate (AUGMENTIN TABLET) 875 Mg Tb, 1 TAB PO BID for 10 Days, #20 TAB Prov:FELIXBLADIMIRVince Lundberg LICENSED SALES PRODUCER 12/21/23 Tramadol Hcl (Tramadol Hcl) 50 Mg Tab, 50 MG PO Q12HP PRN for 5 Days, #10 TAB Prov:ACOSTA COLLINS MD 11/28/23 Ciprofloxacin Hcl (Cipro) 500 Mg Tab, 1 TAB PO BID, #14 TAB Prov:ACOSTA COLLINS MD 11/28/23 Fluticasone Propionate (Nasal) (Flonase Allergy Relief) 50 Mcg/Act Spr, 50 MCG NA DAILY PRN for 30 Days, #1 SPRAY Prov:ANGELIA QUEZADA MOLD COOLER 10/12/23 Prednisone (Prednisone) 20 Mg Tab, 50 MG PO DAILY for 5 Days, #5 TAB Prov:ANGELIA QUEZADA MOLD COOLER 10/12/23 Ibuprofen (Ibuprofen) 600 Mg Tab, 1 TAB PO TID, #30 TAB Prov:NICCI PETIT 03/20/23 Amoxicillin & Pot Clavulanate (AUGMENTIN TABLET) 875 Mg Tb, 875 MG PO BID, #20 TAB Prov:NICCI PETIT 03/20/23 Ondansetron (Zofran) 4 Mg Tab, 4 MG PO Q8HPRN PRN for 3 Days, #9 TAB Prov:ANTONIO MORIN MD 12/17/22 Acetaminophen (Acetaminophen) 500 Mg Tab, 500 MG PO Q4HPRN PRN, #30 TAB Prov:SAKINA FELIPE PAC 10/01/22 Loratadine (CLARITIN TABLET) 10 Mg Tb, 10 MG GT DAILY for 14 Days, #14 TAB Prov:SAKINA FELIPE PAC 10/01/22 Ciprofloxacin Hcl (Cipro) 500 Mg Tab, 1 TAB PO BID, #14 TAB Prov:NICCI PETIT 08/31/22 Omeprazole (Prilosec Susp (For Gt)) 40 Mg Ss, 40 MG PO DAILY, #20 ML Prov:NICCI PETIT 08/31/22 Ibuprofen (Ibuprofen) 800 Mg Tab, 1 TAB PO TID PRN, #30 TAB 0 Refills Prov:BINDU PLEITEZ 02/11/22 Cyclobenzaprine Hcl (Cyclobenzaprine Hcl) 5 Mg Tab, 1 TAB PO QPM PRN, #14 TAB 0 Refills Prov:BINDU PLEITEZ 02/11/22 Nitrofurantoin Monohydrate Mac (Macrobid) 100 Mg Cap, 100 MG PO BID for 7 Days, #14 CAP Prov:CLARE ASHER MD 12/04/21 Prednisone (Prednisone) 20 Mg Tab, 20 MG PO BID for 5 Days, #10 MG Prov:BINDU PLEITEZ 10/02/21 Albuterol Sulfate (Albuterol Sulfate Hfa) 108 Mcg/Act Aer, 108 MCG IN QIDP, #1 AER Prov:BINDU PLEITEZ 10/02/21 Amoxicillin & Pot Clavulanate (Amoxicillin/Potassium Cla) 875 Mg Tab, 1 TAB PO BID, #14 TAB Prov:BINDU PLEITEZ 10/02/21 Ibuprofen (Ibuprofen) 800 Mg Tab, 1 TAB PO TID PRN, #30 TAB Prov:IBNDU PLEITEZ 10/02/21 Mode of Arrival: Ambulatory Past Medical History PAST MEDICAL HISTORY: Anxiety, GERD Surgical History: BTL, , 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 Family History Family History: Unknown Social History Smoker: Non-Smoker Alcohol: Occasionally Drugs: Denies Drug Use Lives In: Home Constitutional: denies: chills, diaphoresis, fatigue, fever, malaise, sweats, weakness, others EENTM: denies: blurred vision, double vision, ear bleeding, ear discharge, ear drainage, ear pain, ear ringing, eye pain, eye redness, hearing loss, mouth pain, mouth swelling, nasal discharge, nose bleeding, nose congestion, nose pain, photophobia, tearing, throat pain, throat swelling, voice changes, others Respiratory: denies: cough, hemoptysis, orthopnea, SOB at rest, shortness of breath, SOB with excertion, stridor, wheezing, others Cardiovascular: denies: chest pain, dizzy spells, diaphoresis, Dyspnea on exertion, edema, irregular heart beat, left arm pain, lightheadedness, palpitations, PND, syncope, others Gastrointestinal: denies: abdomen distended, abdominal pain, blood streaked bowels, constipated, diarrhea, dysphagia, difficulty swallowing, hematemesis, melena, nausea, poor appetite, poor fluid intake, rectal bleeding, rectal pain, vomiting, others Genitourinary: denies: abnormal vagina bleeding, burning, dyspareunia, dysuria, flank pain, frequency, hematuria, incontinence, pain, , vagina discharge, urgency, others Neurological: denies: dizziness, fainting, headache, left sided numbness, left sided weakness, numbness, paresthesia, pre-existing deficit, right sided numbness, right sided weakness, seizure, speech problems, tingling, tremors, weakness, others Musculoskeletal: reports: others (Bilateral wrist pain); denies: back pain, gout, joint pain, joint swelling, muscle pain, muscle stiffness, neck pain Integumetry: denies: bruises, change in color, change in hair/nails, dryness, laceration, lesions, lumps, rash, wounds, others Allergic/Immunocompromised: denies: Difficulty Healing, Frequent Infections, Hives, Itching, others Hematologic/Lymphatic: denies: anemia, blood clots, easy bleeding, easy bruising, swollen glands, others Endocrine: denies: excessive hunger, excessive sweating, excessive thirst, excessive urination, flushing, intolerance to cold, intolerance to heat, unexplained weight gain, unexplained weight loss, others Psychiatric: denies: anxiety, bipolar disorder, depression, hopeless, panic disorder, schizophrenia, sleepless, suicidal, others Physical Exam General Appearance: No Apparent Distress, Normal HEENT: Pharynx Normal Neck: Full Range of Motion, Non-Tender Respiratory: Lungs Clear, No Respiratory Distress, Normal Breath Sounds Cardiovascular: No Murmur, Normal Peripheral Pulses, Regular Rate/Rhythm Breast Exam: Deferred Gastrointestinal: Non Tender, Soft Genitalia: Deferred Pelvic: Deferred Rectal: Deferred Extremities: Normal capillary refill, Normal inspection, Normal range of motion, Non-tender, No pedal edema Musculoskeletal : Location: Bilateral Extremity Location: Wrist (For bilateral wrist tenderness palpated over and posterior aspect no noted ecchymosis, lesions, abrasions or lacerations strength sensory motion intact positive radial pulses) Apperance: Normal Neurologic: Alert, agriculture scientist II-XII nml as Tested, No Motor Deficits, Normal Affect, Normal Mood, No Sensory Deficits Cerebellar Function: Normal Reflexes: Normal Skin: Dry, Normal Color, Warm Lymphatic: No Adenopathy Was a procedure done? Was a procedure done?: No Differential Diagnosis Multiple Trauma: Fractures X-Ray, Labs, Meds, VS Vital Signs Date Time Temp Pulse Resp B/P (MAP) Pulse Ox O2 Delivery O2 Flow Rate FiO2 02/11/25 20:03 97.7 66 16 138/78 (98) 96 97.7 Current Medications Medications (Trade) Dose Ordered Sig/Katya Route Start Time Stop Time Status Last Admin Ketorolac Tromethamine (Toradol Injection) 60 mg ONCE ONCE IM 02/11/25 20:15 02/11/25 20:16 DC 02/11/25 20:48 X-Ray, Labs, Meds, VS Comment Bilateral wrist x-rays show no acute fractures, osseous lesions, or dislocations. This is likely bilateral wrist strain status post fall. He was given Toradol 60 mg IM reports improvement in pain and function requesting discharge at this time. Script ibuprofen advised to take medication as prescribed side effects discussed. Advised to follow up with your PCP in 2 days as necessary consider further imaging such as MRI if symptoms persist. ER return precautions given patient indicates understanding agrees with discharge plan of care. Time of 1ST Reevaluation: 19:32 Reevaluation 1ST: Unchanged Time of 2ND Reevaluation: 21:00 Reevaluation 2ND: Improved Patient Education/Counseling: Diagnosis, Treatment, Prognosis, Need For Follow Up Family Education/Counseling: No Family Present Departure 1 Departure Time of Disposition: 21:01 Impression: Primary Impression: Strain of wrist, bilateral Qualified Codes: S66.911A - Strain of unspecified muscle, fascia and tendon at wrist and hand level, right hand, initial encounter; S66.912A - Strain of unspecified muscle, fascia and tendon at wrist and hand level, left hand, initial encounter Additional Impression: Status post fall Disposition: 01 HOME / SELF CARE / HOMELESS Condition: Stable e-Prescriptions Ibuprofen (Ibuprofen) 800 Mg Tab 800 MG PO Q8HP PRN for 5 Days, #15 TAB Prov: MAME SCHWARZ 02/11/25 Discharged With: Self Critical Care Note Critical Care Time?: No Stability Stability form required: MAME Edgar February 11, 2025 20:36
[2025-02-11] MEDS: KETOROLAC TROMETH 60MG/2ML VIAL IM ONE (20:48)
--- NOTE | 2025-02-11 20:57 | DVH ---
CLINICAL INDICATION: S/P FAL PAIN TECHNIQUE: XY L WRIST 3+ VIEW XRAY Comparison: None FINDINGS: No osseous or joint abnormality identified with no fracture or dislocation. Joint spaces are normal. IMPRESSION: No abnormality.
--- NOTE | 2025-02-11 20:57 | DVH ---
CLINICAL INDICATION: S/P FALL PAIN TECHNIQUE: XY R WRIST 3+ VIEW XRAY Comparison: None FINDINGS: No osseous or joint abnormality identified with no fracture or dislocation. Joint spaces are normal. IMPRESSION: No abnormality.
[2025-02-11] MEDS ORDERED: IBUP-1456 PO (21:00)
[2025-02-11 21:28] VITALS: BP 125/87; TEMP 98.3
[2025-02-11 21:30] VITALS: PULSE 57; RESP 14; O2SAT 99
== END 2025-02-11 21:39 | disposition home or self-care (01) ==
LOC: ER 19:17
DX: S63.592A Other specified sprain of left wrist, initial encounter (principal); S63.591A Other specified sprain of right wrist, initial encounter; F41.9 Anxiety disorder, unspecified; K21.9 Gastro-esophageal reflux disease without esophagitis; Z88.5 Allergy status to narcotic agent; Z98.51 Tubal ligation status; Z98.890 Other specified postprocedural states; W18.39XA Other fall on same level, initial encounter; Y93.89 Activity, other specified; Y92.091 Bathroom in other non-institutional residence as the place of occurrence of the external cause; Y99.8 Other external cause status
CPT/HCPCS: 73110; 96372; 99283; J1885

== ENCOUNTER 2025-04-06 11:38 | Emergency (ER) | payer MEDICAID, SELFPAY ==
[~2025-04-06] VITALS: Ht 154.9 cm; Wt 81.1 kg
--- NOTE | 2025-04-06 12:34 | ED.PDOC ---
History of Present Illness HPI Comments 39 year old female presents to the ED with a chief complaint of constant right eye twitching as of X3 days ago. Patient reports that accompanied with right eye twitching, she is experiencing bilateral arm weakness and "heaviness" on the right shoulder. 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 Patient has no further complaints at this time and otherwise denies one-sided weakness, facial droop, vision changes, slurred speech, or chest pain. Chief Complaint: Eye Problem Time Seen by MD: 12:15 Primary Care Provider: [facility]SA[facility] Reviewed Notes: Nurses Notes, Medications, Allergies Allergies: Coded Allergies: Acetaminophen (Verified Allergy, Severe, 01/30/21) Codeine (Verified Allergy, Severe, 01/30/21) Home Meds Active Scripts Gnujnjea-Xdnlwnlaz-Lu (Otic) (Cortisporin Otic Susp) [address], 3 DROP EACH EAR TID, #10 ML Prov:YOANNA XAVIER MD 01/31/25 Ondansetron Odt 4MG Tab (ZOFRAN PO) 4 Mg Tb, 4 MG PO TID PRN for 4 Days, #12 TAB ODT TAB-DISSOLVE IN MOUTH, THEN SWALLOW Prov:BANDAR SIEGEL MD 01/11/25 Dicyclomine Hcl (BENTYL CAPSULE) 10 Mg Cp, 1 CAP PO TID PRN for 7 Days, #90 CAP 11 Refills Prov:BANDAR SIEGEL MD 01/11/25 Amoxicillin & Pot Clavulanate (Amoxicillin/Potassium Cla) 875 Mg Tab, 1 TAB PO BID for 7 Days, #14 TAB 0 Refills Prov:BINDU PLEITEZ 09/29/24 Lidocaine HCl (Mouth-Throat) (Lidocaine HCl Viscous) 2 % Gaye, 15 ML MT TID for 2 Days, #200 ML 0 Refills Prov:KENDY SMITH NP 08/23/24 Ibuprofen (Ibuprofen) 600 Mg Tab, 1 TAB PO TID for 10 Days, #30 TAB 0 Refills Prov:KENDY SMITH NP 08/23/24 Azithromycin (ZITHROMAX TABLET) 250 Mg Tb, 250 MG PO DAILY for 5 Days, #6 TAB 0 Refills Prov:KENDY SMITH NP 08/23/24 Ciprofloxacin-Dexamethasone (Ciprofloxacin/Dexamethaso 0.3-0.1 %) 1 Radha Radha, 4 DROP OT BID for 7 Days, #5 ML 0 Refills Prov:KENDY SMITH [employer] 08/23/24 Fluconazole (Diflucan) 150 Mg Tab, 1 TAB PO DAILY, #2 TAB 1 Refill Prov:PEREZTIANA DELAROSA Felicitas CASE TECHNICIAN 04/27/24 Nitrofurantoin Monohydrate Mac (Macrobid) 100 Mg Cap, 100 MG PO BID for 7 Days, #14 CAP Prov:TIANA PEREZ CASE TECHNICIAN 04/27/24 Loperamide Hcl (Imodium A-D) 2 Mg Tab, 2 MG PO UD for 5 Days, #20 TAB 0 Refills Prov:KENDY SMITH [employer] 03/31/24 Nitrofurantoin Monohydrate Mac (Macrobid) 100 Mg Cap, 100 MG PO BID for 7 Days, #14 CAP 0 Refills Prov:KENDY SMITH [employer] 03/31/24 Amoxicillin & Pot Clavulanate (AUGMENTIN TABLET) 875 Mg Tb, 875 MG PO BID for 5 Days, #10 TAB 0 Refills Prov:KENDY SMITH [employer] 02/02/24 Ibuprofen (Ibuprofen) 600 Mg Tab, 1 TAB PO TID for 30 Days, #90 TAB 0 Refills Prov:KENDY SMITH [employer] 02/02/24 Benzonatate (Benzonatate) 100 Mg Cap, 1 CAP PO TID for 10 Days, #30 CAP 0 Refills Prov:KENDY SMITH [employer] 02/02/24 Promethazine-Dm (Promethazine Dm 6.25-15 mg/5Ml) 1 Gaye Gaye, 5 ML PO TIDPRN PRN for 10 Days, #150 ML 0 Refills Prov:KENDY SMITH [employer] 02/02/24 Methylprednisolone (Medrol Dosepak) 4 Mg Mina, 4 MG PO UD for 5 Days, #21 TAB 0 Refills UAD Prov:KENDY SMITH [employer] 02/02/24 Cephalexin Monohydrate (Cephalexin) 500 Mg Cap, 1 CAP PO QID for 7 Days, #28 CAP 0 Refills Prov:KENDY SMITH [employer] 01/28/24 Diclofenac Sodium (Topical) (Voltaren Arthritis Pain) 1 % Gel, 1 % EX TIDPRN PRN for 30 Days, #60 GRAMS 0 Refills Prov:KENDY SMITH [employer] 01/12/24 Lidocaine (Anorectal) (Lidocaine 5%) 5 % Cre, 5 % EX DAILYP PRN for 30 Days, #30 PATCH 0 Refills Prov:KENDY SMITH [employer] 01/12/24 Ibuprofen Micronized (Ibuprofen) 600 Mg Tab, 600 MG PO TIDWM for 30 Days, #90 TAB 0 Refills Prov:KENDY SMITH [employer] 01/12/24 Ofloxacin (Otic) (FLOXIN OTIC) [address], 5 DROP OT BID for 10 Days, #10 ML Prov:FELIXJEWELDANNY Q [employer] 12/21/23 Benzocaine-Menthol (Mouth-Thro (Cepacol Sore Throat) 1 Mayo Mayo, 1 MAYO MT Q4HPRN PRN, #24 MAYO as needed for sorethroat Prov:WASHINGTONJEWELDANNY Q [employer] 12/21/23 Cetirizine Hcl (Zyrtec Allergy) 10 Mg Cap, 10 MG PO DAILY, #10 CAP as needed for nasal congestion Prov:WASHINGTONBLADIMIRVince Q [employer] 12/21/23 Ibuprofen Micronized (Ibuprofen) 600 Mg Tab, 1 TAB PO Q6HPRN PRN, #10 TAB as needed for pain Prov:FELIXJEWELDANNY Q [employer] 12/21/23 Famotidine (PEPCID TABLET) 20 Mg Tb, 1 TAB PO BID for 10 Days, #20 TAB Prov:FELIXJEWELDANNY Q [employer] 12/21/23 Prednisone (Prednisone) 20 Mg Tab, 1 TAB PO DAILY for 5 Days, #5 TAB start tomorrow for 4 days Prov:SHERRIE [place] Q [employer] 12/21/23 Amoxicillin & Pot Clavulanate (AUGMENTIN TABLET) 875 Mg Tb, 1 TAB PO BID for 10 Days, #20 TAB Prov:SHERRIE WASHINGTON [employer] 12/21/23 Tramadol Hcl (Tramadol Hcl) 50 Mg Tab, 50 MG PO Q12HP PRN for 5 Days, #10 TAB Prov:ACOSTA COLLINS MD 11/28/23 Ciprofloxacin Hcl (Cipro) 500 Mg Tab, 1 TAB PO BID, #14 TAB Prov:ACOSTA COLLINS MD 11/28/23 Fluticasone Propionate (Nasal) (Flonase Allergy Relief) 50 Mcg/Act Spr, 50 MCG NA DAILY PRN for 30 Days, #1 SPRAY Prov:ANGELIA QUEZADA CASE TECHNICIAN 10/12/23 Prednisone (Prednisone) 20 Mg Tab, 50 MG PO DAILY for 5 Days, #5 TAB Prov:ANGELIA QUEZADA S CASE TECHNICIAN 10/12/23 Ibuprofen (Ibuprofen) 600 Mg Tab, 1 TAB PO TID, #30 TAB Prov:NICCI PETIT 03/20/23 Amoxicillin & Pot Clavulanate (AUGMENTIN TABLET) 875 Mg Tb, 875 MG PO BID, #20 TAB Prov:NICCI PETIT 03/20/23 Ondansetron (Zofran) 4 Mg Tab, 4 MG PO Q8HPRN PRN for 3 Days, #9 TAB Prov:ANTONIO MORIN MD 12/17/22 Acetaminophen (Acetaminophen) 500 Mg Tab, 500 MG PO Q4HPRN PRN, #30 TAB Prov:SAKINA FELIPE PAC 10/01/22 Loratadine (CLARITIN TABLET) 10 Mg Tb, 10 MG GT DAILY for 14 Days, #14 TAB Prov:SAKINA FELIPE PAC 10/01/22 Ciprofloxacin Hcl (Cipro) 500 Mg Tab, 1 TAB PO BID, #14 TAB Prov:NICCI PETIT 08/31/22 Omeprazole (Prilosec Susp (For Gt)) 40 Mg Ss, 40 MG PO DAILY, #20 ML Prov:NICCI PETIT 08/31/22 Ibuprofen (Ibuprofen) 800 Mg Tab, 1 TAB PO TID PRN, #30 TAB 0 Refills Prov:BINDU PLEITEZ 02/11/22 Cyclobenzaprine Hcl (Cyclobenzaprine Hcl) 5 Mg Tab, 1 TAB PO QPM PRN, #14 TAB 0 Refills Prov:BINDU PLEITEZ 02/11/22 Nitrofurantoin Monohydrate Mac (Macrobid) 100 Mg Cap, 100 MG PO BID for 7 Days, #14 CAP Prov:CLARE ASHER MD 12/04/21 Prednisone (Prednisone) 20 Mg Tab, 20 MG PO BID for 5 Days, #10 MG Prov:BINDU PLEITEZ 10/02/21 Albuterol Sulfate (Albuterol Sulfate Hfa) 108 Mcg/Act Aer, 108 MCG IN QIDP, #1 AER Prov:BINDU PLEITEZ ASIM 10/02/21 Amoxicillin & Pot Clavulanate (Amoxicillin/Potassium Cla) 875 Mg Tab, 1 TAB PO BID, #14 TAB Prov:BINDU PLEITEZ ASIM 10/02/21 Ibuprofen (Ibuprofen) 800 Mg Tab, 1 TAB PO TID PRN, #30 TAB Prov:BINDU PLEITEZ ASIM 10/02/21 Information Source: Patient Mode of Arrival: Ambulatory Severity: Moderate Timing: Days (X3) Duration: Since onset Prehospital treatment: None Past Medical History PAST MEDICAL HISTORY: Anxiety, GERD Surgical History: BTL, , Tubal Ligation [employer] History: Ectopic Family History Family History: Unknown Social History Smoker: Non-Smoker Alcohol: Occasionally Drugs: Denies Drug Use Lives In: Home Constitutional: denies: chills, diaphoresis, fatigue, fever, malaise, sweats, weakness, others EENTM: reports: others (Right Eye Twitching); denies: blurred vision, double vision, ear bleeding, ear discharge, ear drainage, ear pain, ear ringing, eye pain, eye redness, hearing loss, mouth pain, mouth swelling, nasal discharge, nose bleeding, nose congestion, nose pain, photophobia, tearing, throat pain, throat swelling, voice changes Respiratory: denies: cough, hemoptysis, orthopnea, SOB at rest, shortness of breath, SOB with excertion, stridor, wheezing, others Cardiovascular: denies: chest pain, dizzy spells, diaphoresis, Dyspnea on exertion, edema, irregular heart beat, left arm pain, lightheadedness, palpitations, PND, syncope, others Gastrointestinal: denies: abdomen distended, abdominal pain, blood streaked bowels, constipated, diarrhea, dysphagia, difficulty swallowing, hematemesis, melena, nausea, poor appetite, poor fluid intake, rectal bleeding, rectal pain, vomiting, others Genitourinary: denies: abnormal vagina bleeding, burning, dyspareunia, dysuria, flank pain, frequency, hematuria, incontinence, pain, , vagina discharge, urgency, others Neurological: reports: weakness (Bilateral Arms); denies: dizziness, fainting, headache, left sided numbness, left sided weakness, numbness, paresthesia, pre- existing deficit, right sided numbness, right sided weakness, seizure, speech problems, tingling, tremors, others Musculoskeletal: reports: others (Heaviness on Right Shoulder); denies: back pain, gout, joint pain, joint swelling, muscle pain, muscle stiffness, neck pain Integumetry: denies: bruises, change in color, change in hair/nails, dryness, laceration, lesions, lumps, rash, wounds, others Allergic/Immunocompromised: denies: Difficulty Healing, Frequent Infections, Hives, Itching, others Hematologic/Lymphatic: denies: anemia, blood clots, easy bleeding, easy bruising, swollen glands, others Endocrine: denies: excessive hunger, excessive sweating, excessive thirst, excessive urination, flushing, intolerance to cold, intolerance to heat, unexplained weight gain, unexplained weight loss, others Psychiatric: denies: anxiety, bipolar disorder, depression, hopeless, panic disorder, schizophrenia, sleepless, suicidal, others All Other Systems: Reviewed and Negative Physical Exam General Appearance: Mild Distress, Normal, Other (no facial asymmetry; no drooping ) HEENT: Normal ENT Inspection, Pharynx Normal, TMs Normal, Other ( no signs of nystagmus; hints exam negative) Neck: Full Range of Motion, Non-Tender, Normal, Normal Inspection Respiratory: Chest Non-Tender, Lungs Clear, No Accessory Muscle Use, No Respiratory Distress, Normal Breath Sounds Cardiovascular: No Edema, No JVD, No Murmur, No Gallop, Normal Peripheral Pulses, Regular Rate/Rhythm Breast Exam: Deferred Gastrointestinal: No Organomegaly, Non Tender, No Pulsatile Mass, Normal Bowel Sounds, Soft Genitalia: Deferred Pelvic: Deferred Rectal: Deferred Extremities: No calf tenderness, Normal capillary refill, Normal inspection, Normal range of motion, Non-tender, No pedal edema Musculoskeletal : Apperance: Normal Neurologic: Alert, wet trimmer II-XII nml as Tested, No Motor Deficits, Normal Affect, Normal Mood, No Sensory Deficits, Other (pronator drift negative ) Cerebellar Function: Normal Reflexes: Normal Skin: Dry, Normal Color, Warm Lymphatic: No Adenopathy Was a procedure done? Was a procedure done?: No Differential Dx Considerations may include: Stroke, Cervical radiculopathy, Anxiety X-Ray, Labs, Meds, VS Vital Signs Date Time Temp Pulse Resp B/P (MAP) Pulse Ox O2 Delivery O2 Flow Rate FiO2 04/06/25 13:55 66 18 99 Room Air 04/06/25 13:55 98.1 66 18 139/90 (106) 99 98.1 04/06/25 12:13 98.5 75 18 120/86 (97) 99 98.5 Lab Test 04/06/25 13:31 04/06/25 12:20 Range/Units White Blood Count 6.6 4.4-10.8 10^3/uL Red Blood Count 4.56 4.0-5.20 10^6/uL Hemoglobin 13.4 12.2-16.2 g/dL Hematocrit 39.4 36.0-46.0 % Mean Corpuscular Volume 86.5 80.0-100.0 fL Mean Corpuscular Hemoglobin 29.3 28.0-32.0 pg Mean Corpuscular Hemoglobin Concent 33.9 32.0-36.0 g/dL Red Cell Distribution Width 13.4 11.8-14.3 % Platelet Count 237 140-450 10^3/uL Mean Platelet Volume 9.8 6.9-10.8 fL Neutrophils (%) (Auto) 65.6 37.0-80.0 % Lymphocytes (%) (Auto) 27.4 10.0-50.0 % Monocytes (%) (Auto) 6.0 0.0-12.0 % Eosinophils (%) (Auto) 0.6 0.0-7.0 % Basophils (%) (Auto) 0.4 0.0-2.0 % Neutrophils # (Auto) 4.3 1.6-8.6 10 ^3/uL Lymphocytes # (Auto) 1.8 0.4-5.4 10 ^3/uL Monocytes # (Auto) 0.4 0-1.3 10 ^3/uL Eosinophils # (Auto) 0 0-0.8 10 ^3/uL Basophils # (Auto) 0 0-0.2 10 ^3/uL Nucleated Red Blood Cells 0.0 % Sodium Level 141 136-145 mmol/L Potassium Level 3.7 3.5-5.1 mmol/L Chloride Level 107 98-107 mmol/L Carbon Dioxide Level 28 20-31 mmol/L Anion Gap 6 5-15 Blood Urea Nitrogen 8 L 9-23 mg/dL Creatinine 0.68 0.550-1.02 mg/dL Glomerular Filtration Rate Calc 114 >90 mL/min BUN/Creatinine Ratio 11.8 10.0-20.0 Serum Glucose 85 74-106 mg/dL Calcium Level 9.5 8.7-10.4 mg/dL Magnesium Level 1.9 1.6-2.6 mg/dL Total Bilirubin 0.4 0.2-1.0 mg/dL Aspartate Amino Transferase (AST) 13 13-40 U/L Alanine Aminotransferase (ALT) < 9 7-40 U/L Alkaline Phosphatase 62 46-116 U/L Total Protein 7.3 5.7-8.2 g/dL Albumin 4.3 3.2-4.8 g/dL Urine Color Light-yellow Yellow Urine Clarity Clear Clear Urine pH 6.5 5.0-9.0 Urine Specific [place] 1.021 1.001-1.035 Urine Protein Negative Negative Urine Ketones Negative Negative Urine Blood Negative Negative /uL Urine Nitrite Negative Negative Urine Bilirubin Negative Negative Urine Urobilinogen Normal Negative mg/dL Urine Leukocyte Esterase 1+ Negative /uL Urine RBC 3 0 - 4 /hpf Urine Microscopic WBC 11 H 0-5 /HPF Urine Squamous Epithelial Cells Few <5 /hpf Urine Bacteria Few H None Seen /hpf Urine Mucus Few None Seen Urine Glucose Normal Normal mg/dL Urine Test Negative Negative X-Ray, Labs, Meds, VS Comment 39 year old female presents to the ED with a chief complaint of constant right eye twitching as of X3 days ago. Patient arrives alert and oriented, ABC's intact, afebrile, vital signs stable, saturating well in room air Peripheral IV insertion+ labs were ordered. CBC was ordered to exclude anemia, blood loss, or infection. BMP was ordered to exclude electrolyte abnormalities, renal failure, dehydration, hyperglycemia CMP was ordered to exclude electrolyte abnormalities, renal failure, dehydration, hyperglycemia and/or liver enzyme abnormalities. PT and INR were ordered to rule out coagulopathy. Troponin and BNP were ordered to rule out myocardial infarction, or congestive heart failure. Urinalysis was ordered to rule out UTI or hematuria. Diagnostic imaging ordered by me and results interpreted by radiology : Labs in the ED showed (pertinent+ and then pertinent-) Patient was given:_. Tolerated medications with no adverse reaction. Additional MDM Review of External, Non-ED records: External records reviewed. Discussion with independent historian (EMS, family) history obtained from the patient/parents (if applicable) at bedside Chronic conditions affecting care: None Social determinants of health affecting care: None Consideration of admission (observation or admission): I considered escalation of care to admission for this patient, however given the reassuring workup, the patient is safe for outpatient management. Discussion with the Radiology: No Tests considered but not performed: Prescription medication considered but not given: 12 lead EKG interpretation: Patient Education/Counseling: Diagnosis, Treatment, Need For Follow Up Family Education/Counseling: Diagnosis, Treatment, Need For Follow Up SEPSIS Sepsis Screen Date sepsis recognized/suspect: Apr 06, 2025 Time Sepsis recognized/suspect: 1204 Recent Procedure: No On Antibiotic Therapy: No Respiratory Rate >20: No Heart Rate >90: No Temp<36 C (96.8 F) or >38.3 C: No SBP <90 or MAP <65 mmHG: No New Acute Mental Status Change: No Is the patient on CPAP, BIPAP,: No Vital Signs Date Time Temp Pulse Resp B/P (MAP) Pulse Ox O2 Delivery O2 Flow Rate FiO2 04/06/25 13:55 66 18 99 Room Air 04/06/25 13:55 98.1 66 18 139/90 (106) 99 98.1 04/06/25 12:13 98.5 75 18 120/86 (97) 99 98.5 Laboratory Tests Test 04/06/25 13:31 White Blood Count 6.6 10^3/uL (4.4-10.8) Departure 1 Departure Time of Disposition: 14:30 Impression: Primary Impression: Twitching of eye Additional Impression: UTI (urinary tract infection) Qualified Codes: N30.00 - Acute cystitis without hematuria Disposition: HOME / SELF CARE / HOMELESS Condition: Stable e-Prescriptions Methocarbamol (Methocarbamol) 500 Mg Tab 500 MG PO Q8HP PRN for 10 Days, #30 TAB 0 Refills Prov: KENDY SMITH [employer] 04/06/25 Nitrofurantoin (Nitrofurantoin) 100 Mg Cap 1 CAP PO BID for 5 Days, #10 CAP 0 Refills Prov: KENDY SMITH [employer] 04/06/25 Critical Care Note Critical Care Time?: No Stability Stability form required: No I personally scribed for KENDY SMITH [employer] ([email or web address]) on 04/06/25 at 12:34. Electronically submitted by Yosi [email or web address]). I personally scribed for KENDY SMITH NP ([employer]) on 04/06/25 at 12:40. Electronically submitted by Yosi Bender ([email or web address]). I personally scribed for KENDY SMITH [employer] ([employer]) on 04/06/25 at 12:47. Electronically submitted by Yosi Bender ([email or web address]). KENDY SMITH NP Apr 06, 2025 12:34
[2025-04-06 13:50] LABS: Hematocrit 39.4 % (36.0-46.0); Hemoglobin 13.4 g/dL (12.2-16.2); Mean Corpuscular Hemoglobin 29.3 pg (28.0-32.0); Mean Corpuscular Volume 86.5 fL (80.0-100.0); Nucleated Red Blood Cells % 0.0 %
[2025-04-06 13:55] VITALS: BP 139/90; PULSE 66; RESP 18; TEMP 98.1; O2SAT 99
[2025-04-06 14:03] LABS: Albumin 4.3 g/dL (3.2-4.8); Alkaline Phosphatase 62 U/L (46-116); Anion Gap 6 (5-15); BUN/Creatinine Ratio 11.8 (10.0-20.0); Calcium 9.5 mg/dL (8.7-10.4); Carbon Dioxide 28 mmol/L (20-31); Chloride 107 mmol/L (98-107); Glucose 85 mg/dL (74-106); Magnesium 1.9 mg/dL (1.6-2.6); Potassium 3.7 mmol/L (3.5-5.1); Sodium 141 mmol/L (136-145); Total Protein 7.3 g/dL (5.7-8.2)
[2025-04-06 14:04] LABS: Alanine Aminotransferase < 9 U/L (7-40); Bilirubin, Total 0.4 mg/dL (0.2-1.0); Blood Urea Nitrogen 8 mg/dL (9-23)
[2025-04-06 14:04] LABS: Urine Protein, UAD Negative (Negative)
[2025-04-06] MEDS ORDERED: NITR-52 PO (14:33)
[2025-04-06] MEDS ORDERED: METH-1181 PO (14:33)
== END 2025-04-06 15:03 | disposition home or self-care (01) ==
LOC: ER 11:38
DX: N39.0 Urinary tract infection, site not specified (principal); H57.89 Other specified disorders of eye and adnexa; R53.1 Weakness; F41.9 Anxiety disorder, unspecified; K21.9 Gastro-esophageal reflux disease without esophagitis; Z98.51 Tubal ligation status; Z98.890 Other specified postprocedural states; Z79.1 Long term (current) use of non-steroidal anti-inflammatories (NSAID); Z79.899 Other long term (current) drug therapy; Z88.5 Allergy status to narcotic agent
CPT/HCPCS: 36415; 80053; 81001; 81025; 83735; 85025

== ENCOUNTER 2025-07-11 09:54 | Emergency (ER) | payer SELFPAY ==
[~2025-07-11] VITALS: Ht 154.9 cm; Wt 80.1 kg
[~2025-07-11 09:54] MED LIST changes: +METH-1181 PO; +NITR-52 PO
--- NOTE | 2025-07-11 10:30 | ED.PDOC ---
GI ASSESSMENT HPI Comments 39 year old female PMHx GERD, anxiety presents to the ED with a chief complaint of constipation onset 5 days. Patient states she has been experiencing constipation for the past 5 days, last bowel movement was a few days ago, very small amount. Patient states she began experiencing lower abdominal pain yesterday around 17:00 with abdominal distension, currently rates pain 3/10. Was seen in this ED on 04/06/25 for similar symptoms. Denies vomiting, diarrhea, fever, chills, hematemesis, dysuria, hematuria, melena, blood in stool. No other symptoms or modifying factors present at this time. Chief Complaint: Abdominal Pain Time Seen by MD: 10:15 Primary Care Provider: [facility] Reviewed Notes: Nurses Notes, Medications, Allergies Allergies: Coded Allergies: Acetaminophen (Verified Allergy, Severe, 01/30/21) Codeine (Verified Allergy, Severe, 01/30/21) Home Meds Active Scripts Ciprofloxacin Hcl (Cipro) 500 Mg Tab, 1 TAB PO BID, #14 TAB Prov:ACOSTA COLLINS MD 07/11/25 Methocarbamol (Methocarbamol) 500 Mg Tab, 500 MG PO Q8HP PRN for 10 Days, #30 T AB 0 Refills Prov:KENDY SMITH NP 04/06/25 Nitrofurantoin (Nitrofurantoin) 100 Mg Cap, 1 CAP PO BID for 5 Days, #10 CAP 0 Refills Prov:KENDY SMITH NP 04/06/25 Ebogxwwu-[id number]-Tp (Otic) (Cortisporin Otic Susp) [address], 3 DROP EACH EAR TID, #10 ML Prov:YOANNA XAVIER MD 01/31/25 Ondansetron Odt 4MG Tab (ZOFRAN PO) 4 Mg Tb, 4 MG PO TID PRN for 4 Days, #12 TAB ODT TAB-DISSOLVE IN MOUTH, THEN SWALLOW Prov:BANDAR SIEGEL MD 01/11/25 Dicyclomine Hcl (BENTYL CAPSULE) 10 Mg Cp, 1 CAP PO TID PRN for 7 Days, #90 CAP 11 Refills Prov:BANDAR SIEGEL MD 01/11/25 Amoxicillin & Pot Clavulanate (Amoxicillin/Potassium Cla) 875 Mg Tab, 1 TAB PO BID for 7 Days, #14 TAB 0 Refills Prov:BINDU PLEITEZ 09/29/24 Lidocaine HCl (Mouth-Throat) (Lidocaine HCl Viscous) 2 % Gaye, 15 ML MT TID for 2 Days, #200 ML 0 Refills Prov:KENDY SMITH RONEL 08/23/24 Ibuprofen (Ibuprofen) 600 Mg Tab, 1 TAB PO TID for 10 Days, #30 TAB 0 Refills Prov:KENDY SMITH RONEL 08/23/24 Azithromycin (ZITHROMAX TABLET) 250 Mg Tb, 250 MG PO DAILY for 5 Days, #6 TAB 0 Refills Prov:KENDY SMITH RONEL 08/23/24 Ciprofloxacin-Dexamethasone (Ciprofloxacin/Dexamethaso 0.3-0.1 %) 1 Radha Radha, 4 DROP OT BID for 7 Days, #5 ML 0 Refills Prov:KENDY SMITH RONEL 08/23/24 Fluconazole (Diflucan) 150 Mg Tab, 1 TAB PO DAILY, #2 TAB 1 Refill Prov:TIANA PEREZ SENIOR BOILER OPERATOR 04/27/24 Nitrofurantoin Monohydrate Mac (Macrobid) 100 Mg Cap, 100 MG PO BID for 7 Days, #14 CAP Prov:TIANA PEREZ SENIOR BOILER OPERATOR 04/27/24 Loperamide Hcl (Imodium A-D) 2 Mg Tab, 2 MG PO UD for 5 Days, #20 TAB 0 Refills Prov:KENDY SMITH RONEL 03/31/24 Nitrofurantoin Monohydrate Mac (Macrobid) 100 Mg Cap, 100 MG PO BID for 7 Days, #14 CAP 0 Refills Prov:KENDY SMITH RONEL 03/31/24 Amoxicillin & Pot Clavulanate (AUGMENTIN TABLET) 875 Mg Tb, 875 MG PO BID for 5 Days, #10 TAB 0 Refills Prov:KENDY SMITH RONEL 02/02/24 Ibuprofen (Ibuprofen) 600 Mg Tab, 1 TAB PO TID for 30 Days, #90 TAB 0 Refills Prov:KENDY SMITH RONEL 02/02/24 Benzonatate (Benzonatate) 100 Mg Cap, 1 CAP PO TID for 10 Days, #30 CAP 0 Refills Prov:KENDY SMITH RONEL 02/02/24 Promethazine-Dm (Promethazine Dm 6.25-15 mg/5Ml) 1 Gaye Gaye, 5 ML PO TIDPRN PRN for 10 Days, #150 ML 0 Refills Prov:KENDY SMITH COLLET MAKER 02/02/24 Methylprednisolone (Medrol Dosepak) 4 Mg Mina, 4 MG PO UD for 5 Days, #21 TAB 0 Refills UAD Prov:KENDY SMITH COLLET MAKER 02/02/24 Cephalexin Monohydrate (Cephalexin) 500 Mg Cap, 1 CAP PO QID for 7 Days, #28 CAP 0 Refills Prov:KENDY SMITH COLLET MAKER 01/28/24 Diclofenac Sodium (Topical) (Voltaren Arthritis Pain) 1 % Gel, 1 % EX TIDPRN PRN for 30 Days, #60 GRAMS 0 Refills Prov:KENDY SMITH COLLET MAKER 01/12/24 Lidocaine (Anorectal) (Lidocaine 5%) 5 % Cre, 5 % EX DAILYP PRN for 30 Days, #30 PATCH 0 Refills Prov:KENDY SMITH COLLET MAKER 01/12/24 Ibuprofen Micronized (Ibuprofen) 600 Mg Tab, 600 MG PO TIDWM for 30 Days, #90 TAB 0 Refills Prov:KENDY SMITH COLLET MAKER 01/12/24 Ofloxacin (Otic) (FLOXIN OTIC) [address], 5 DROP OT BID for 10 Days, #10 ML Prov:SHERRIE WASHINGTON Q COLLET MAKER 12/21/23 Benzocaine-Menthol (Mouth-Thro (Cepacol Sore Throat) 1 Mayo Mayo, 1 MAYO MT Q4HPRN PRN, #24 MAYO as needed for sorethroat Prov:SHERRIE WASHINGTON Q COLLET MAKER 12/21/23 Cetirizine Hcl (Zyrtec Allergy) 10 Mg Cap, 10 MG PO DAILY, #10 CAP as needed for nasal congestion Prov:SHERRIE WASHINGTON Q COLLET MAKER 12/21/23 Ibuprofen Micronized (Ibuprofen) 600 Mg Tab, 1 TAB PO Q6HPRN PRN, #10 TAB as needed for pain Prov:SHERRIE WASHINGTON Q COLLET MAKER 12/21/23 Famotidine (PEPCID TABLET) 20 Mg Tb, 1 TAB PO BID for 10 Days, #20 TAB Prov:SHERRIE WASHINGTON Q COLLET MAKER 12/21/23 Prednisone (Prednisone) 20 Mg Tab, 1 TAB PO DAILY for 5 Days, #5 TAB start tomorrow for 4 days Prov:SHERRIE WASHINGTON Q COLLET MAKER 12/21/23 Amoxicillin & Pot Clavulanate (AUGMENTIN TABLET) 875 Mg Tb, 1 TAB PO BID for 10 Days, #20 TAB Prov:FELIXJEWELALDA Q COLLET MAKER 12/21/23 Tramadol Hcl (Tramadol Hcl) 50 Mg Tab, 50 MG PO Q12HP PRN for 5 Days, #10 TAB Prov:ACOSTA COLLINS MD 11/28/23 Ciprofloxacin Hcl (Cipro) 500 Mg Tab, 1 TAB PO BID, #14 TAB Prov:ACOSTA COLLINS MD 11/28/23 Fluticasone Propionate (Nasal) (Flonase Allergy Relief) 50 Mcg/Act Spr, 50 MCG NA DAILY PRN for 30 Days, #1 SPRAY Prov:ANGELIA QUEZADA SENIOR BOILER OPERATOR 10/12/23 Prednisone (Prednisone) 20 Mg Tab, 50 MG PO DAILY for 5 Days, #5 TAB Prov:ANGELIA QUEZADA SENIOR BOILER OPERATOR 10/12/23 Ibuprofen (Ibuprofen) 600 Mg Tab, 1 TAB PO TID, #30 TAB Prov:NICCI PETIT 03/20/23 Amoxicillin & Pot Clavulanate (AUGMENTIN TABLET) 875 Mg Tb, 875 MG PO BID, #20 TAB Prov:NICCI PETIT 03/20/23 Ondansetron (Zofran) 4 Mg Tab, 4 MG PO Q8HPRN PRN for 3 Days, #9 TAB Prov:ANTONIO MORIN MD 12/17/22 Acetaminophen (Acetaminophen) 500 Mg Tab, 500 MG PO Q4HPRN PRN, #30 TAB Prov:SAKINA FELIPE PAC 10/01/22 Loratadine (CLARITIN TABLET) 10 Mg Tb, 10 MG GT DAILY for 14 Days, #14 TAB Prov:SAKINA FELIPE PAC 10/01/22 Omeprazole (Prilosec Susp (For Gt)) 40 Mg Ss, 40 MG PO DAILY, #20 ML Prov:NICCI PETIT 08/31/22 Ibuprofen (Ibuprofen) 800 Mg Tab, 1 TAB PO TID PRN, #30 TAB 0 Refills Prov:BINDU PLEITEZ 02/11/22 Cyclobenzaprine Hcl (Cyclobenzaprine Hcl) 5 Mg Tab, 1 TAB PO QPM PRN, #14 TAB 0 Refills Prov:BINDU PLEITEZ 02/11/22 Nitrofurantoin Monohydrate Mac (Macrobid) 100 Mg Cap, 100 MG PO BID for 7 Days, #14 CAP Prov:CLARE ASHER MD 12/04/21 Prednisone (Prednisone) 20 Mg Tab, 20 MG PO BID for 5 Days, #10 MG Prov:BINDU PLEITEZ 10/02/21 Albuterol Sulfate (Albuterol Sulfate Hfa) 108 Mcg/Act Aer, 108 MCG IN QIDP, #1 AER Prov:BINDU PLEITEZ 10/02/21 Amoxicillin & Pot Clavulanate (Amoxicillin/Potassium Cla) 875 Mg Tab, 1 TAB PO BID, #14 TAB Prov:BINDU PLEITEZ 10/02/21 Ibuprofen (Ibuprofen) 800 Mg Tab, 1 TAB PO TID PRN, #30 TAB Prov:BINDU PLEITEZ 10/02/21 Information Source: Patient Mode of Arrival: Ambulatory Timing: Days Duration: Since onset Prehospital treatment: None Quality: Sharp Vomitus: None Severity: Moderate Recent: None Recent Hx of: None Pain Location: Other (lower abd) Modifying Factors: Nothing Associated sign and symptoms: Nausea, Diarrhea, Abdominal Pain Past Medical History PAST MEDICAL HISTORY: Anxiety, GERD Surgical History: BTL, , 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 Family History Family History: Family hx of DM, Family hx of Cancer, Family hx of HTN Social History Smoker: Non-Smoker Alcohol: Occasionally Drugs: Denies Drug Use Lives In: Home Constitutional: denies: chills, diaphoresis, fatigue, fever, malaise, sweats, weakness, others EENTM: denies: blurred vision, double vision, ear bleeding, ear discharge, ear drainage, ear pain, ear ringing, eye pain, eye redness, hearing loss, mouth pain, mouth swelling, nasal discharge, nose bleeding, nose congestion, nose pain, photophobia, tearing, throat pain, throat swelling, voice changes, others Respiratory: denies: cough, hemoptysis, orthopnea, SOB at rest, shortness of breath, SOB with excertion, stridor, wheezing, others Cardiovascular: denies: chest pain, dizzy spells, diaphoresis, Dyspnea on exertion, edema, irregular heart beat, left arm pain, lightheadedness, palpitations, PND, syncope, others Gastrointestinal: reports: abdomen distended, abdominal pain, constipated, nausea; denies: blood streaked bowels, diarrhea, dysphagia, difficulty swallowing, hematemesis, melena, poor appetite, poor fluid intake, rectal bleeding, rectal pain, vomiting, others Genitourinary: denies: abnormal vagina bleeding, burning, dyspareunia, dysuria, flank pain, frequency, hematuria, incontinence, pain, , vagina discharge, urgency, others Neurological: denies: dizziness, fainting, headache, left sided numbness, left sided weakness, numbness, paresthesia, pre-existing deficit, right sided numbness, right sided weakness, seizure, speech problems, tingling, tremors, weakness, others Musculoskeletal: denies: back pain, gout, joint pain, joint swelling, muscle pain, muscle stiffness, neck pain, others Integumetry: denies: bruises, change in color, change in hair/nails, dryness, laceration, lesions, lumps, rash, wounds, others Allergic/Immunocompromised: denies: Difficulty Healing, Frequent Infections, Hives, Itching, others Hematologic/Lymphatic: denies: anemia, blood clots, easy bleeding, easy bruising, swollen glands, others Endocrine: denies: excessive hunger, excessive sweating, excessive thirst, excessive urination, flushing, intolerance to cold, intolerance to heat, unexplained weight gain, unexplained weight loss, others Psychiatric: denies: anxiety, bipolar disorder, depression, hopeless, panic disorder, schizophrenia, sleepless, suicidal, others All Other Systems: Reviewed and Negative Physical Exam General Appearance: No Apparent Distress HEENT: Normal ENT Inspection, Pharynx Normal, TMs Normal Neck: Full Range of Motion, Non-Tender, Normal, Normal Inspection Respiratory: Chest Non-Tender, Lungs Clear, No Accessory Muscle Use, No Respiratory Distress, Normal Breath Sounds Cardiovascular: No Edema, No JVD, No Murmur, No Gallop, Normal Peripheral Pulses, Regular Rate/Rhythm Breast Exam: Deferred Gastrointestinal: No Organomegaly Genitalia: Deferred Pelvic: Deferred Rectal: Deferred Extremities: No calf tenderness, Normal capillary refill, Normal inspection, Normal range of motion, Non-tender, No pedal edema Musculoskeletal : Apperance: Normal Neurologic: Alert, furnace clerk II-XII nml as Tested, No Motor Deficits, Normal Affect, Normal Mood, No Sensory Deficits Cerebellar Function: Normal Reflexes: Normal Skin: Dry, Normal Color, Warm Lymphatic: No Adenopathy Was a procedure done? Was a procedure done?: No GI differential Dx Differential Diagnosis: Appendicitis, Gastritis/PUD, Gastroenteritis, Inflammatory BD, UTI, Electrolyte Imbalance, Food Poisoning X-Ray, Labs, Meds, VS Vital Signs Date Time Temp Pulse Resp B/P (MAP) Pulse Ox O2 Delivery O2 Flow Rate FiO2 07/11/25 09:55 98.4 73 16 122/72 98 98.4 Lab Test 07/11/25 10:42 07/11/25 10:30 Range/Units White Blood Count 6.5 4.4-10.8 10^3/uL Red Blood Count 4.56 4.0-5.20 10^6/uL Hemoglobin 13.3 12.2-16.2 g/dL Hematocrit 39.2 36.0-46.0 % Mean Corpuscular Volume 86.0 80.0-100.0 fL Mean Corpuscular Hemoglobin 29.1 28.0-32.0 pg Mean Corpuscular Hemoglobin Concent 33.8 32.0-36.0 g/dL Red Cell Distribution Width 13.4 11.8-14.3 % Platelet Count 212 140-450 10^3/uL Mean Platelet Volume 9.2 6.9-10.8 fL Neutrophils (%) (Auto) 70.0 37.0-80.0 % Lymphocytes (%) (Auto) 21.5 10.0-50.0 % Monocytes (%) (Auto) 6.7 0.0-12.0 % Eosinophils (%) (Auto) 1.4 0.0-7.0 % Basophils (%) (Auto) 0.4 0.0-2.0 % Neutrophils # (Auto) 4.5 1.6-8.6 10 ^3/uL Lymphocytes # (Auto) 1.4 0.4-5.4 10 ^3/uL Monocytes # (Auto) 0.4 0-1.3 10 ^3/uL Eosinophils # (Auto) 0.1 0-0.8 10 ^3/uL Basophils # (Auto) 0 0-0.2 10 ^3/uL Nucleated Red Blood Cells 0.0 % Sodium Level 139 136-145 mmol/L Potassium Level 3.8 3.5-5.1 mmol/L Chloride Level 107 98-107 mmol/L Carbon Dioxide Level 23 20-31 mmol/L Anion Gap 9 5-15 Blood Urea Nitrogen 8 L 9-23 mg/dL Creatinine 0.65 0.550-1.02 mg/dL Glomerular Filtration Rate Calc 115 >90 mL/min BUN/Creatinine Ratio 12.3 10.0-20.0 Serum Glucose 96 74-106 mg/dL Calcium Level 8.5 L 8.7-10.4 mg/dL Total Bilirubin 0.6 0.2-1.0 mg/dL Aspartate Amino Transferase (AST) 14 13-40 U/L Alanine Aminotransferase (ALT) < 9 7-40 U/L Alkaline Phosphatase 70 46-116 U/L Total Protein 7.6 5.7-8.2 g/dL Albumin 4.1 3.2-4.8 g/dL Lipase 34 12-53 U/L Urine Color Light-yellow Yellow Urine Clarity Clear Clear Urine pH 8.0 5.0-9.0 Urine Specific [place] 1.018 1.001-1.035 Urine Protein Negative Negative Urine Ketones Negative Negative Urine Blood Negative Negative /uL Urine Nitrite Negative Negative Urine Bilirubin Negative Negative Urine Urobilinogen Normal Negative mg/dL Urine Leukocyte Esterase 2+ Negative /uL Urine RBC 2 0 - 4 /hpf Urine Microscopic WBC 3 0-5 /HPF Urine Squamous Epithelial Cells Few <5 /hpf Urine Bacteria Few H None Seen /hpf Urine Glucose Normal Normal mg/dL PROCEDURE(s): ABPL - CT AB PEL WO CON-NO ORAL OR IV IMPRESSION: No acute abdominal or pelvic findings. Radiation optimization: All CT scans at this facility use at least one of these dose optimization techniques: automated exposure control mA and/or kV adjustment per patient size (includes targeted exams where dose is matched to clinical indication) or iterative reconstruction. The patient's urine test is positive for UTI The CBC and chemistry panel are within normal limits The patient is being discharged on Cipro and will follow up with the primary care doctor The patient is also discharged on Ultra Time of 1ST Reevaluation: 10:45 Reevaluation 1ST: Unchanged Patient Education/Counseling: Diagnosis, Treatment, Prognosis, Need For Follow Up Family Education/Counseling: No Family Present SEPSIS Sepsis Screen Date sepsis recognized/suspect: Jul 11, 2025 Time Sepsis recognized/suspect: 0957 Recent Procedure: No On Antibiotic Therapy: No Respiratory Rate >20: No Heart Rate >90: No Temp<36 C (96.8 F) or >38.3 C: No SBP <90 or MAP <65 mmHG: No New Acute Mental Status Change: No Is the patient on CPAP, BIPAP,: No Physician Orders Ct Ab Pel Wo Con-No Oral Or Iv (07/11/25 10:17) Vital Signs Date Time Temp Pulse Resp B/P (MAP) Pulse Ox O2 Delivery O2 Flow Rate FiO2 07/11/25 09:55 98.4 73 16 122/72 98 98.4 Laboratory Tests Test 07/11/25 10:42 White Blood Count 6.5 10^3/uL (4.4-10.8) Departure 1 Departure Time of Disposition: 11:39 Impression: Primary Impression: Acute abdominal pain Additional Impression: UTI (urinary tract infection) Qualified Codes: N30.00 - Acute cystitis without hematuria Disposition: HOME / SELF CARE / HOMELESS Condition: Fair e-Prescriptions Ciprofloxacin Hcl (Cipro) 500 Mg Tab 1 TAB PO BID, #14 TAB Prov: ACOSTA COLLINS MD 07/11/25 Discharged With: Self Critical Care Note Critical Care Time?: No Stability Stability form required: No Heart Score Heart Score: Heart Score Response (Comments) Value History N/A 0 EKG N/A 0 Age N/A 0 Risk Factors N/A 0 Troponin N/A 0 Total 0 I personally scribed for ACOSTA COLLINS MD ([email or web address]) on 07/11/25 at 10:30. Electronically submitted by Ruby Pompa ([email or web address]). I personally scribed for ACOSTA COLLINS MD ([email or web address]) on 07/11/25 at 10:36. Electronically submitted by Ruby Pompa ([email or web address]). I personally scribed for ACOSTA COLLINS MD ([email or web address]) on 07/11/25 at 10:58. Electronically submitted by Ruby Pompa ([email or web address]). ACOSTA COLLINS MD Jul 11, 2025 10:30
--- NOTE | 2025-07-11 10:52 | DVH ---
Exam: CT CT AB PEL WO CON-NO ORAL OR IV History: pain Comparison Study: CT ABD PELVIS WO on DOS: 06/09/25, CT CT AB PEL WO CON-NO ORAL OR IV on DOS: 11/28/23, CT ABD PELVIS WO CONTRAST on DOS: 12/04/21 Technique: Multidetector spiral CT of the abdomen was performed from lung bases to pubic symphysis. I maging was performed without IV contrast. Axial, coronal and sagittal multiplanar reformats were obta ined from the axial data set by the technologist. Radiation dose : 1. Abdomen/Pelvis: CTDIvol 13.71 mGy, DLP 701.88 mGy*cm. Findings: Evaluation of solid organs is limited due to lack of intravenous contrast use. Lung Bases: No acute or significant lung base finding. Normal heart size. No pleural or pericardial effusion. Liver: The liver is normal in size. No focal lesions. Gallbladder and biliary Tree: Unremarkable Spleen: Unremarkable Pancreas: The pancreas is grossly normal in appearance. Adrenal Glands: Unremarkable Kidneys: Kidneys are grossly normal without calculi or hydronephrosis. Bladder: Grossly unremarkable for degree of distention. Bowel: The stomach is grossly normal in appearance. Small bowel and colon are normal in caliber and d istribution. Normal appendix is visualized in the right lower quadrant without findings of appendicit is. Ascites: Absent Lymphadenopathy: No mesenteric, retroperitoneal or periportal lymphadenopathy. Abdominal wall and Mesentery: Unremarkable. Vasculature: The visualized abdominal aorta is normal in size and caliber. Evaluation of abdominal a nd pelvic vessels is limited due to lack of intravenous contrast. Pelvic Organs: Unremarkable Musculoskeletal: No aggressive focal bony lesions, acute fractures or dislocation. IMPRESSION: No acute abdominal or pelvic findings. Radiation optimization: All CT scans at this facility use at least one of these dose optimization kee hniques: automated exposure control mA and/or kV adjustment per patient size (includes targeted exam s where dose is matched to clinical indication) or iterative reconstruction.
[2025-07-11 11:00] LABS: Hematocrit 39.2 % (36.0-46.0); Hemoglobin 13.3 g/dL (12.2-16.2); Mean Corpuscular Hemoglobin 29.1 pg (28.0-32.0); Mean Corpuscular Volume 86.0 fL (80.0-100.0); Nucleated Red Blood Cells % 0.0 %
[2025-07-11 11:07] LABS: Urine Protein, UAD Negative (Negative)
[2025-07-11 11:19] LABS: Albumin 4.1 g/dL (3.2-4.8); Alkaline Phosphatase 70 U/L (46-116); Anion Gap 9 (5-15); BUN/Creatinine Ratio 12.3 (10.0-20.0); Carbon Dioxide 23 mmol/L (20-31); Chloride 107 mmol/L (98-107); Glucose 96 mg/dL (74-106); Lipase 34 U/L (12-53); Potassium 3.8 mmol/L (3.5-5.1); Sodium 139 mmol/L (136-145); Total Protein 7.6 g/dL (5.7-8.2)
[2025-07-11 11:20] LABS: Alanine Aminotransferase < 9 U/L (7-40); Bilirubin, Total 0.6 mg/dL (0.2-1.0); Blood Urea Nitrogen 8 mg/dL (9-23); Calcium 8.5 mg/dL (8.7-10.4)
[2025-07-11 12:22] VITALS: BP 116/78; TEMP 97.9
[2025-07-11 12:23] VITALS: PULSE 65; RESP 16; O2SAT 100
== END 2025-07-11 12:24 | disposition home or self-care (01) ==
LOC: ER 09:56
DX: N39.0 Urinary tract infection, site not specified (principal); R10.30 Lower abdominal pain, unspecified; F41.9 Anxiety disorder, unspecified; K21.9 Gastro-esophageal reflux disease without esophagitis; Z87.59 Personal history of other complications of pregnancy, childbirth and the puerperium; Z88.5 Allergy status to narcotic agent; Z98.51 Tubal ligation status
CPT/HCPCS: 36415; 74176; 80053; 81001; 83690; 85025

== ENCOUNTER 2025-08-01 08:12 | Emergency (ER) | payer MEDICAID, SELFPAY ==
[~2025-08-01] VITALS: Ht 154.9 cm; Wt 78.9 kg
[2025-08-01 08:17] VITALS: TEMP 97.9
--- NOTE | 2025-08-01 08:51 | ED.PDOC ---
General HPI Comments 39 year old female presents to the ED with a chief complaint of pelvic pain onset 3 days. Patient states she is currently experiencing pelvic pain described as a pressure sensation for the past 3 days. She is also experiencing rectal pain described as pressure sensation. Patient was seen at Urgent care 3 days ago, was told she did not have UTI, come to ED if symptoms worsened. Denies fever, chills, nausea, vomiting, diarrhea, hematuria, melena, blood in stool. No other symptoms or modifying factors present at this time. Chief Complaint: Pelvic Pain Time Seen by MD: 08:35 Primary Care Provider: [facility] Reviewed notes: Medications, Allergies Allergies: Coded Allergies: Acetaminophen (Verified Allergy, Severe, 01/30/21) Codeine (Verified Allergy, Severe, 01/30/21) Home Meds Active Scripts Ciprofloxacin Hcl (Cipro) 500 Mg Tab, 1 TAB PO BID, #14 TAB Prov:ACOSTA COLLINS MD 07/11/25 Methocarbamol (Methocarbamol) 500 Mg Tab, 500 MG PO Q8HP PRN for 10 Days, #30 TAB 0 Refills Prov:KENDY SMITH NP 04/06/25 Nitrofurantoin (Nitrofurantoin) 100 Mg Cap, 1 CAP PO BID for 5 Days, #10 CAP 0 Refills Prov:KENDY SMITH NP 04/06/25 [id number] (Otic) (Cortisporin Otic Susp) [address], 3 DROP EACH EAR TID, #10 ML Prov:YOANNA XAVIER MD 01/31/25 Ondansetron Odt 4MG Tab (ZOFRAN PO) 4 Mg Tb, 4 MG PO TID PRN for 4 Days, #12 TAB ODT TAB-DISSOLVE IN MOUTH, THEN SWALLOW Prov:BANDAR SIEGEL MD 01/11/25 Dicyclomine Hcl (BENTYL CAPSULE) 10 Mg Cp, 1 CAP PO TID PRN for 7 Days, #90 CAP 11 Refills Prov:BANDAR SIEGEL MD 01/11/25 Amoxicillin & Pot Clavulanate (Amoxicillin/Potassium Cla) 875 Mg Tab, 1 TAB PO BID for 7 Days, #14 TAB 0 Refills Prov:BINDU PLEITEZ 09/29/24 Lidocaine HCl (Mouth-Throat) (Lidocaine HCl Viscous) 2 % Gaye, 15 ML MT TID for 2 Days, #200 ML 0 Refills Prov:KENDY SMITH BOILERS AND PRESSURE VESSELS INSPECTOR 08/23/24 Ibuprofen (Ibuprofen) 600 Mg Tab, 1 TAB PO TID for 10 Days, #30 TAB 0 Refills Prov:KENDY SMITH [employer]ILERS AND PRESSURE VESSELS INSPECTOR 08/23/24 Azithromycin (ZITHROMAX TABLET) 250 Mg Tb, 250 MG PO DAILY for 5 Days, #6 TAB 0 Refills Prov:KENDY SMITH [employer]ILERS AND PRESSURE VESSELS INSPECTOR 08/23/24 Ciprofloxacin-Dexamethasone (Ciprofloxacin/Dexamethaso 0.3-0.1 %) 1 Radha Radha, 4 DROP OT BID for 7 Days, #5 ML 0 Refills Prov:KENDY SMITH [employer]ERS AND PRESSURE VESSELS INSPECTOR 08/23/24 Fluconazole (Diflucan) 150 Mg Tab, 1 TAB PO DAILY, #2 TAB 1 Refill Prov:TIANA PEREZ ENGINE REPAIR SUPERVISOR 04/27/24 Nitrofurantoin Monohydrate Mac (Macrobid) 100 Mg Cap, 100 MG PO BID for 7 Days, #14 CAP Prov:TIANA PEREZ ENGINE REPAIR SUPERVISOR 04/27/24 Loperamide Hcl (Imodium A-D) 2 Mg Tab, 2 MG PO UD for 5 Days, #20 TAB 0 Refills Prov:KENDY SMITH [employer]ILERS AND PRESSURE VESSELS INSPECTOR 03/31/24 Nitrofurantoin Monohydrate Mac (Macrobid) 100 Mg Cap, 100 MG PO BID for 7 Days, #14 CAP 0 Refills Prov:KENDY SMITH [employer]ILERS AND PRESSURE VESSELS INSPECTOR 03/31/24 Amoxicillin & Pot Clavulanate (AUGMENTIN TABLET) 875 Mg Tb, 875 MG PO BID for 5 Days, #10 TAB 0 Refills Prov:KENDY SMITH [employer]ILERS AND PRESSURE VESSELS INSPECTOR 02/02/24 Ibuprofen (Ibuprofen) 600 Mg Tab, 1 TAB PO TID for 30 Days, #90 TAB 0 Refills Prov:KENDY SMITH [employer]ILERS AND PRESSURE VESSELS INSPECTOR 02/02/24 Benzonatate (Benzonatate) 100 Mg Cap, 1 CAP PO TID for 10 Days, #30 CAP 0 Refills Prov:KENDY SMITH [employer]ILERS AND PRESSURE VESSELS INSPECTOR 02/02/24 Promethazine-Dm (Promethazine Dm 6.25-15 mg/5Ml) 1 Gaye Gaye, 5 ML PO TIDPRN PRN for 10 Days, #150 ML 0 Refills Prov:KENDY SMITH [employer]ILERS AND [employer]ESSURE VESSELS INSPECTOR 02/02/24 Methylprednisolone (Medrol Dosepak) 4 Mg Mina, 4 MG PO UD for 5 Days, #21 TAB 0 Refills UAD Prov:KENDY SIMTH [employer]ILERS AND PRESSURE VESSELS INSPECTOR 02/02/24 Cephalexin Monohydrate (Cephalexin) 500 Mg Cap, 1 CAP PO QID for 7 Days, #28 CAP 0 Refills Prov:KENDY SMITH [employer]ILERS AND PRESSURE VESSELS INSPECTOR 01/28/24 Diclofenac Sodium (Topical) (Voltaren Arthritis Pain) 1 % Gel, 1 % EX TIDPRN PRN for 30 Days, #60 GRAMS 0 Refills Prov:KENDY SMITH [employer]ESSURE VESSELS INSPECTOR 01/12/24 Lidocaine (Anorectal) (Lidocaine 5%) 5 % Cre, 5 % EX DAILYP PRN for 30 Days, #30 PATCH 0 Refills Prov:KENDY SMITH [employer]ILERS AND PRESSURE VESSELS INSPECTOR 01/12/24 Ibuprofen Micronized (Ibuprofen) 600 Mg Tab, 600 MG PO TIDWM for 30 Days, #90 TAB 0 Refills Prov:KENDY SMITH [employer]ILERS AND PRESSURE VESSELS INSPECTOR 01/12/24 Ofloxacin (Otic) (FLOXIN OTIC) [address], 5 DROP OT BID for 10 Days, #10 ML Prov:FELIXSHERRIE BOILERS AND PRESSURE VESSELS INSPECTOR 12/21/23 Benzocaine-Menthol (Mouth-Thro (Cepacol Sore Throat) 1 Mayo Mayo, 1 MAYO MT Q4HPRN PRN, #24 MAYO as needed for sorethroat Prov:SHERRIE WASHINGTON Q [employer]ILERS AND PRESSURE VESSELS INSPECTOR 12/21/23 Cetirizine Hcl (Zyrtec Allergy) 10 Mg Cap, 10 MG PO DAILY, #10 CAP as needed for nasal congestion Prov:SHERRIE WASHINGTON Q [employer]ERS AND PRESSURE VESSELS INSPECTOR 12/21/23 Ibuprofen Micronized (Ibuprofen) 600 Mg Tab, 1 TAB PO Q6HPRN PRN, #10 TAB as needed for pain Prov:SHERRIE WASHINGTON Q [employer]ERS AND PRESSURE VESSELS INSPECTOR 12/21/23 Famotidine (PEPCID TABLET) 20 Mg Tb, 1 TAB PO BID for 10 Days, #20 TAB Prov:SHERRIE WASHINGTON Q [employer]ERS AND PRESSURE VESSELS INSPECTOR 12/21/23 Prednisone (Prednisone) 20 Mg Tab, 1 TAB PO DAILY for 5 Days, #5 TAB start tomorrow for 4 days Prov:SHERRIE WASHINGTON Q [employer]ESSURE VESSELS INSPECTOR 12/21/23 Amoxicillin & Pot Clavulanate (AUGMENTIN TABLET) 875 Mg Tb, 1 TAB PO BID for 10 Days, #20 TAB Prov:SHERRIE WASHINGTON Tamika BOILERS AND PRESSURE VESSELS INSPECTOR 12/21/23 Tramadol Hcl (Tramadol Hcl) 50 Mg Tab, 50 MG PO Q12HP PRN for 5 Days, #10 TAB Prov:ACOSTA COLLINS MD 11/28/23 Ciprofloxacin Hcl (Cipro) 500 Mg Tab, 1 TAB PO BID, #14 TAB Prov:ACOSTA COLLINS MD 11/28/23 Fluticasone Propionate (Nasal) (Flonase Allergy Relief) 50 Mcg/Act Spr, 50 MCG NA DAILY PRN for 30 Days, #1 SPRAY Prov:ANGELIA QUEZADA ENGINE REPAIR SUPERVISOR 10/12/23 Prednisone (Prednisone) 20 Mg Tab, 50 MG PO DAILY for 5 Days, #5 TAB Prov:ANGELIA QUEZADA ENGINE REPAIR SUPERVISOR 10/12/23 Ibuprofen (Ibuprofen) 600 Mg Tab, 1 TAB PO TID, #30 TAB Prov:NICCI PETIT 03/20/23 Amoxicillin & Pot Clavulanate (AUGMENTIN TABLET) 875 Mg Tb, 875 MG PO BID, #20 TAB Prov:NICCI PETIT PA 03/20/23 Ondansetron (Zofran) 4 Mg Tab, 4 MG PO Q8HPRN PRN for 3 Days, #9 TAB Prov:ANTONIO MORIN MD 12/17/22 Acetaminophen (Acetaminophen) 500 Mg Tab, 500 MG PO Q4HPRN PRN, #30 TAB Prov:SAKINA FELIPE PAC 10/01/22 Loratadine (CLARITIN TABLET) 10 Mg Tb, 10 MG GT DAILY for 14 Days, #14 TAB Prov:SAKINA FELIPE PAC 10/01/22 Omeprazole (Prilosec Susp (For Gt)) 40 Mg Ss, 40 MG PO DAILY, #20 ML Prov:NICCI PETIT 08/31/22 Ibuprofen (Ibuprofen) 800 Mg Tab, 1 TAB PO TID PRN, #30 TAB 0 Refills Prov:BINDU PLEITEZ 02/11/22 Cyclobenzaprine Hcl (Cyclobenzaprine Hcl) 5 Mg Tab, 1 TAB PO QPM PRN, #14 TAB 0 Refills Prov:BINDU PLEITEZ 02/11/22 Nitrofurantoin Monohydrate Mac (Macrobid) 100 Mg Cap, 100 MG PO BID for 7 Days, #14 CAP Prov:CLARE ASHER MD 12/04/21 Prednisone (Prednisone) 20 Mg Tab, 20 MG PO BID for 5 Days, #10 MG Prov:BINDU PLEITEZ 10/02/21 Albuterol Sulfate (Albuterol Sulfate Hfa) 108 Mcg/Act Aer, 108 MCG IN QIDP, #1 AER Prov:BINDU PLEITEZ 10/02/21 Amoxicillin & Pot Clavulanate (Amoxicillin/Potassium Cla) 875 Mg Tab, 1 TAB PO BID, #14 TAB Prov:BINDU PLEITEZ 10/02/21 Ibuprofen (Ibuprofen) 800 Mg Tab, 1 TAB PO TID PRN, #30 TAB Prov:BINDU PLEITEZ 10/02/21 Information Source: Patient Mode of Arrival: Ambulatory Severity: Moderate Timing: Days Duration: Since onset Prehospital treatment: None Onset: Spontaneous Symptoms: Dysuria, Other History of: None Location: Suprapubic Modifying factors: None associated signs and symptoms: Dysuria Past Medical History PAST MEDICAL HISTORY: Anxiety, GERD Surgical History: BTL, , 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 Family History Family History: Family hx of DM, Family hx of Cancer, Family hx of HTN Social History Smoker: Non-Smoker Alcohol: Occasionally Drugs: Denies Drug Use Lives In: Home Constitutional: denies: chills, diaphoresis, fatigue, fever, malaise, sweats, weakness, others EENTM: denies: blurred vision, double vision, ear bleeding, ear discharge, ear drainage, ear pain, ear ringing, eye pain, eye redness, hearing loss, mouth pain, mouth swelling, nasal discharge, nose bleeding, nose congestion, nose pain, photophobia, tearing, throat pain, throat swelling, voice changes, others Respiratory: denies: cough, hemoptysis, orthopnea, SOB at rest, shortness of breath, SOB with excertion, stridor, wheezing, others Cardiovascular: denies: chest pain, dizzy spells, diaphoresis, Dyspnea on exertion, edema, irregular heart beat, left arm pain, lightheadedness, palpitations, PND, syncope, others Gastrointestinal: denies: abdomen distended, abdominal pain, blood streaked bowels, constipated, diarrhea, dysphagia, difficulty swallowing, hematemesis, melena, nausea, poor appetite, poor fluid intake, rectal bleeding, rectal pain, vomiting, others Genitourinary: reports: dysuria, pain (pelvic, rectal); denies: abnormal vagina bleeding, burning, dyspareunia, flank pain, frequency, hematuria, incontinence, , vagina discharge, urgency, others Neurological: denies: dizziness, fainting, headache, left sided numbness, left sided weakness, numbness, paresthesia, pre-existing deficit, right sided numbness, right sided weakness, seizure, speech problems, tingling, tremors, weakness, others Musculoskeletal: denies: back pain, gout, joint pain, joint swelling, muscle pain, muscle stiffness, neck pain, others Integumetry: denies: bruises, change in color, change in hair/nails, dryness, laceration, lesions, lumps, rash, wounds, others Allergic/Immunocompromised: denies: Difficulty Healing, Frequent Infections, Hives, Itching, others Hematologic/Lymphatic: denies: anemia, blood clots, easy bleeding, easy bruising, swollen glands, others Endocrine: denies: excessive hunger, excessive sweating, excessive thirst, excessive urination, flushing, intolerance to cold, intolerance to heat, unexplained weight gain, unexplained weight loss, others Psychiatric: denies: anxiety, bipolar disorder, depression, hopeless, panic disorder, schizophrenia, sleepless, suicidal, others All Other Systems: Reviewed and Negative Physical Exam General Appearance: Moderate Distress HEENT: Normal ENT Inspection, Pharynx Normal, TMs Normal Neck: Full Range of Motion, Non-Tender, Normal, Normal Inspection Respiratory: Chest Non-Tender, Lungs Clear, No Accessory Muscle Use, No Respiratory Distress, Normal Breath Sounds Cardiovascular: No Edema, No JVD, No Murmur, No Gallop, Normal Peripheral Pulses, Regular Rate/Rhythm Breast Exam: Deferred Gastrointestinal: No Organomegaly, Non Tender, No Pulsatile Mass, Normal Bowel Sounds, Soft Genitalia: Deferred Pelvic: Deferred Rectal: Deferred Extremities: No calf tenderness, Normal capillary refill, Normal inspection, Normal range of motion, Non-tender, No pedal edema Musculoskeletal : Apperance: Normal Neurologic: Alert, business continuity analyst II-XII nml as Tested, No Motor Deficits, Normal Affect, Normal Mood, No Sensory Deficits Cerebellar Function: Normal Reflexes: Normal Skin: Dry, Normal Color, Warm Peripheral Pulses: 3+ Radial (R), 3+ Radial (L) Lymphatic: No Adenopathy Was a procedure done? Was a procedure done?: No Differential Diagnosis Kidney stone (Female): Musculoskeletal pain, Urinary obstruction, Urolithiasis X-Ray, Labs, Meds, VS Vital Signs Date Time Temp Pulse Resp B/P (MAP) Pulse Ox O2 Delivery O2 Flow Rate FiO2 08/01/25 09:45 64 18 116/82 (93) 98 08/01/25 09:45 69 18 99 Room Air 08/01/25 08:17 97.9 74 16 116/83 99 97.9 Lab Test 08/01/25 09:06 Range/Units Urine Color Light-yellow Yellow Urine Clarity Turbid H Clear Urine pH 5.5 5.0-9.0 Urine Specific [place] 1.014 1.001-1.035 Urine Protein Negative Negative Urine Ketones Negative Negative Urine Blood Negative Negative /uL Urine Nitrite Negative Negative Urine Bilirubin Negative Negative Urine Urobilinogen Normal Negative mg/dL Urine Leukocyte Esterase 3+ Negative /uL Urine RBC 3 0 - 4 /hpf Urine Microscopic WBC 37 H 0-5 /HPF Urine Squamous Epithelial Cells Mod <5 /hpf Urine Bacteria None seen None Seen /hpf Urine Mucus Few None Seen Urine Glucose Normal Normal mg/dL Patient alert. Complaining of suprapubic discomfort. Vitals stable. Answering questions. CT of the abdomen reviewed does not show any acute changes. Urinalysis shows UTI. Was given prescription of Macrobid antibiotic. Explained to the patient. Was told to follow up with her primary care physician. Was told to come back if there is any problem. Time of 1ST Reevaluation: 09:05 Reevaluation 1ST: Unchanged Patient Education/Counseling: Diagnosis, Treatment, Prognosis Family Education/Counseling: No Family Present SEPSIS Sepsis Screen Date sepsis recognized/suspect: Aug 01, 2025 Time Sepsis recognized/suspect: 818 Recent Procedure: No On Antibiotic Therapy: No Respiratory Rate >20: No Heart Rate >90: No Temp<36 C (96.8 F) or >38.3 C: No SBP <90 or MAP <65 mmHG: No New Acute Mental Status Change: No Is the patient on CPAP, BIPAP,: No Physician Orders Ct Ab Pel Wo Con-No Oral Or Iv (08/01/25 09:09) Vital Signs Date Time Temp Pulse Resp B/P (MAP) Pulse Ox O2 Delivery O2 Flow Rate FiO2 08/01/25 09:45 64 18 116/82 (93) 98 08/01/25 09:45 69 18 99 Room Air 08/01/25 08:17 97.9 74 16 116/83 99 97.9 Departure 1 Departure Time of Disposition: 10:18 Impression: Primary Impression: UTI (urinary tract infection) Qualified Codes: N30.00 - Acute cystitis without hematuria Disposition: HOME / SELF CARE / HOMELESS Condition: Good e-Prescriptions Nitrofurantoin Monohydrate Mac (Macrobid) 100 Mg Cap 100 MG PO BID for 7 Days, #14 CAP Prov: CLARE ASHER MD 08/01/25 Discharged With: Self Critical Care Note Critical Care Time?: No Stability Stability form required: No Heart Score Heart Score: Heart Score Response (Comments) Value History N/A 0 EKG N/A 0 Age N/A 0 Risk Factors N/A 0 Troponin N/A 0 Total 0 I personally scribed for CLARE ASHER MD ([email or web address]) on 08/01/25 at 08:51. Electronically submitted by Ruby Pompa ([email or web address]). CLARE ASHER MD Aug 01, 2025 08:51
[2025-08-01 09:31] LABS: Urine Protein, UAD Negative (Negative)
[2025-08-01 09:45] VITALS: BP 116/82; PULSE 69; RESP 18; O2SAT 99
--- NOTE | 2025-08-01 10:05 | DVH ---
Exam: CT CT AB PEL WO CON-NO ORAL OR IV History: Pain. Assess for colitis Comparison Study: CT CT AB PEL WO CON-NO ORAL OR IV on DOS: 07/11/25, CT ABD PELVIS WO on DOS: 06/09/25, CT CT AB PEL WO CON-NO ORAL OR IV on DOS: 11/28/23, CT ABD PELVIS WO CONTRAST on DOS: 12/04/21 Technique: Multidetector spiral CT of the abdomen was performed from lung bases to pubic symphysis. I maging was performed without IV contrast. Axial, coronal and sagittal multiplanar reformats were obta ined from the axial data set by the technologist. Radiation Dose : 1. Abdomen/Pelvis: CTDIvol 12.86 mGy, DLP 652.12 mGy*cm. Findings: Evaluation of solid organs is limited due to lack of intravenous contrast use. Lung Bases: No acute or significant lung base finding. Normal heart size. No pleural or pericardial effusion. Liver: The liver is normal in size. No focal lesions. Gallbladder and Biliary Tree: Unremarkable Spleen: Unremarkable Pancreas: The pancreas is grossly normal in appearance. Adrenal Glands: Unremarkable Kidneys: Kidneys are grossly normal without calculi or hydronephrosis. Bladder: Grossly unremarkable for degree of distention. Bowel: The stomach is grossly normal in appearance. Small bowel and colon are normal in caliber and d istribution. Normal appendix is visualized in the right lower quadrant without findings of appendicit is. Ascites: Absent Lymphadenopathy: No mesenteric, retroperitoneal or periportal lymphadenopathy. Abdominal Wall and Mesentery: Unremarkable. Vasculature: The visualized abdominal aorta is normal in size and caliber. Evaluation of abdominal a nd pelvic vessels is limited due to lack of intravenous contrast. Pelvic Organs: Right ovarian cyst measuring 2.8 cm. Musculoskeletal: No aggressive focal bony lesions, acute fractures or dislocation. IMPRESSION: No acute abdominal or pelvic findings. Radiation optimization: All CT scans at this facility use at least one of these dose optimization kee hniques: automated exposure control mA and/or kV adjustment per patient size (includes targeted exam s where dose is matched to clinical indication) or iterative reconstruction.
== END 2025-08-01 10:28 | disposition home or self-care (01) ==
LOC: ER 08:12
DX: N39.0 Urinary tract infection, site not specified (principal); F41.9 Anxiety disorder, unspecified; K21.9 Gastro-esophageal reflux disease without esophagitis; Z87.59 Personal history of other complications of pregnancy, childbirth and the puerperium; Z98.51 Tubal ligation status; Z79.899 Other long term (current) drug therapy; Z88.5 Allergy status to narcotic agent; Z88.8 Allergy status to other drugs, medicaments and biological substances
CPT/HCPCS: 74176; 81001